=== PATIENT | female | born 1960 | race Caucasian/White ===

== ENCOUNTER 2021-02-23 16:04 | Outpatient (REF) | payer MEDICAID, SELFPAY ==
[2021-02-23 22:05] LABS: TSH (W/Ref FT4) < 0.01 uIU/mL (0.36-3.74)
[2021-02-23 22:22] LABS: FREE T4 1.35 ng/dL (0.76-1.46)
== END 2021-02-23 16:05 | disposition home or self-care (01) ==
LOC: NCHCN 16:04
PROVIDERS: Visit Provider Nurse Practitioner Family
DX: E03.9 Hypothyroidism, unspecified (principal)
CPT/HCPCS: 84439; 84443

== ENCOUNTER 2021-11-09 21:21 | Outpatient (REF) | payer MEDICAID, SELFPAY ==
[2021-11-09 22:01] LABS: Bilirubin Negative (Negative); Blood Trace-intact (Negative); Clarity Turbid (Clear); Glucose Negative (Negative); Ketones Negative (Negative); Leukocyte Esterase Negative (Negative); Nitrite Negative (Negative); Specific Gravity >= 1.030 (1.005-1.025); Urobilinogen 0.2 EU/dL (Up TO 0.2)
[2021-11-09 22:12] LABS: C & S Indicated? No; Crystals Many Amorphous HPF (Negative)
[2021-11-09 23:17] LABS: TSH (W/Ref FT4) < 0.01 uIU/mL (0.36-3.74)
[2021-11-09 23:33] LABS: FREE T4 2.04 ng/dL (0.76-1.46)
[2021-11-10 16:07] LABS: T3,Free 9.5 pg/mL (2.8-5.3)
== END 2021-11-09 21:22 | disposition home or self-care (01) ==
LOC: LBN 21:21
PROVIDERS: Visit Provider Family Medicine
DX: E05.90 Thyrotoxicosis, unspecified without thyrotoxic crisis or storm (principal); R10.9 Unspecified abdominal pain
CPT/HCPCS: 81003; 81015; 84439; 84443; 84481

== ENCOUNTER 2022-08-05 17:03 | Outpatient (REF) | payer MEDICAID, SELFPAY ==
[2022-08-05 16:40] LABS: ALT 21 U/L (14-59); AST 17 U/L (15-37); Albumin 4.1 g/dL (3.4-5.0); Alkaline Phosphatase 142 U/L (46-116); BUN 16 mg/dL (7-18); Bilirubin, Total 0.4 mg/dL (0.2-1.0); CREATININE 0.6 mg/dL (0.55-1.02); Calcium 9.7 mg/dL (8.5-10.1); Chloride 101 mmol/L (98-107); Estimated GFR 102.06 (mL/min/1.73m2); FREE T4 2.03 ng/dL (0.76-1.46); Glucose 100 mg/dL (74-106); Potassium 4.7 mmol/L (3.5-5.1); Sodium 137 mmol/L (136-145); Total Protein 7.8 g/dL (6.4-8.2)
[2022-08-05 16:46] LABS: TSH < 0.01 uIU/mL (0.36-3.74)
[2022-08-05 16:58] LABS: Calculated LDL 104 mg/dL (<100); Cholesterol 193 mg/dL (<200); HDL Cholesterol 63 mg/dL (40-60); Triglyceride 131 mg/dL (<150)
[2022-08-05 22:48] LABS: T3, Total 305 ng/dL (97-169)
== END 2022-08-05 17:04 | disposition home or self-care (01) ==
LOC: NCHCN 17:03
PROVIDERS: Visit Provider Nurse Practitioner Family
DX: E05.90 Thyrotoxicosis, unspecified without thyrotoxic crisis or storm (principal); R00.0 Tachycardia, unspecified; F41.8 Other specified anxiety disorders; Z13.220 Encounter for screening for lipoid disorders
CPT/HCPCS: 80053; 80061; 84439; 84443; 84480

== ENCOUNTER 2022-10-04 15:13 | Outpatient (REF) | payer MEDICAID, SELFPAY ==
[2022-10-04 19:26] LABS: FREE T4 1.17 ng/dL (0.76-1.46); TSH < 0.01 uIU/mL (0.36-3.74)
[2022-10-05 17:41] LABS: T3, Total 124 ng/dL (97-169)
== END 2022-10-04 15:14 | disposition home or self-care (01) ==
LOC: NCHCN 15:13
PROVIDERS: Visit Provider Nurse Practitioner Family
DX: E05.90 Thyrotoxicosis, unspecified without thyrotoxic crisis or storm (principal)
CPT/HCPCS: 84439; 84443; 84480

== ENCOUNTER → 2022-10-20 02:57 | Outpatient (CLI) | payer MEDICAID, SELFPAY ==
--- NOTE | 2022-10-20 07:47 | DI.MAMMO_ITS ---
Exam(s) MAMMO SCREENING EXAM: MAMMO SCREENING CLINICAL HISTORY: SCREENING, Z12.39 TECHNIQUE: Mammograms were interpreted according to the usual protocol including computer analysis w [employer] CAD system, tomosynthesis and C-view imaging. COMPARISON: FINDINGS: The breasts are of moderate density with fairly symmetrical distribution tissue. No dominant mass or clumped microcalcification is identified either breast. There is masslike area of focal asymmetric density projected in the central superior portion of the left breast on CC and MLO views. No prior m ammogram available for comparison. IMPRESSION: Question left breast mass as described above, additional mammographic views of the left breast reques elyse to include CC and MLO spot compression views. Breast ultrasound also recommended. BI-RADS Category 0 - Assessment Incomplete: Need additional imaging evaluation Breast Density - Category B - Scattered areas of fibroglandular density
== END ==
PROVIDERS: Visit Provider Nurse Practitioner Family
DX: Z12.31 Encounter for screening mammogram for malignant neoplasm of breast (principal); R92.8 Other abnormal and inconclusive findings on diagnostic imaging of breast
CPT/HCPCS: 77063; 77067

== ENCOUNTER 2022-11-19 00:17 | Outpatient (CLI) | payer MEDICAID, SELFPAY ==
--- NOTE | 2022-11-19 09:30 | DI.MAMMO_ITS ---
Exam(s) MG MAMMO SCREEN CALL BACK UNI US BREAST LT LIMITED EXAM: MG MAMMO SCREEN CALL BACK UNI CLINICAL HISTORY: MASS-LIKE FOCAL ASYMMETRIC DENSITY CENTERAL SUPERIOR LT BREAST. TECHNIQUE: Craniocaudal and mediolateral oblique spot compression digital Mammography views of the l eft breast followed by Tomosynthesis and left breast ultrasound. COMPARISON: MG MG MAMMO SCREENING from 10/20/2022 US US BREAST LT LIMITED from 11/19/2022 FINDINGS: Mammography/Tomosynthesis: Masses/Architectural Distortion: Persistent mildly lobulated ovoid nodule superior left breast which may represent intramammary lymph node. Microcalcifictions: No suspicious pleomorphic-type are seen. Skin Thickening/Nipple Retraction: None. Left breast US: Echotexture: Normal appearance of the glandular tissue. Shadowing: No suspicious foci. Cyst: None. Solid lesions: 4 x 2 x 3 millimeter hypoechoic focus upper inner quadrant, 10 o'clock position 3 cm f rom the nipple has the appearance of an intramammary lymph node. This may not correspond to the gayle mographic abnormality which is larger. Ductal dilation: None. IMPRESSION: 1. No evidence of malignancy is noted. 2. Six-month follow-up left mammogram and ultrasound is recommended. 3. The findings were discussed with the patient on the date of the examination. BI-RADS Category 3 - Probably Benign Finding: Recommend follow-up mammography in 3 months Breast Density - Category B - Scattered areas of fibroglandular density A mammogram that demonstrates density of C or D indicates the patient's breast tissue is dense. Dense breast tissue is very common and is not abnormal, but dense breast tissue can make it harder to find cancer on a mammogram. Also, dense breast tissue may increase their breast cancer risk. This informa tion about the result of the mammogram report was provided to the patient to raise their awareness. U se this report when you speak with the patient about their risks for breast cancer, which includes th eir family history. At that time, you may recommend for more screening tests (Ultrasound or MRI) as t hey might be useful based on their risk. A negative radiographic report should not delay biopsy if a dominant or clinically suspicious mass is present. Up to ten percent of cancers are not identified on mammography. A negative report may reinforce clinical impression. Adenosis and dense breasts may obscure an underlying neoplasm. False positive reports average 6 to 10%. Patient will receive a letter notifying them of these results.
== END 2022-11-19 00:37 ==
LOC: DI 00:17
PROVIDERS: Visit Provider Nurse Practitioner Family
DX: Z12.31 Encounter for screening mammogram for malignant neoplasm of breast (principal); R92.8 Other abnormal and inconclusive findings on diagnostic imaging of breast
CPT/HCPCS: 76642; 77063; 77067

== ENCOUNTER 2022-11-23 16:39 | Outpatient (REF) | payer MEDICAID, SELFPAY ==
[2022-11-23 18:15] LABS: FREE T4 1.01 ng/dL (0.76-1.46)
[2022-11-23 18:17] LABS: TSH < 0.01 uIU/mL (0.36-3.74)
== END 2022-11-23 16:40 | disposition home or self-care (01) ==
LOC: NCHCN 16:39
PROVIDERS: Visit Provider Nurse Practitioner Family
DX: E05.90 Thyrotoxicosis, unspecified without thyrotoxic crisis or storm (principal)
CPT/HCPCS: 84439; 84443

== ENCOUNTER 2023-01-19 17:47 | Outpatient (REF) | payer MEDICAID, SELFPAY ==
[2023-01-19 15:46] LABS: FREE T4 0.73 ng/dL (0.76-1.46)
== END 2023-01-19 17:48 | disposition home or self-care (01) ==
LOC: NCHCN 17:47
PROVIDERS: Visit Provider Nurse Practitioner Family
DX: E05.90 Thyrotoxicosis, unspecified without thyrotoxic crisis or storm (principal)
CPT/HCPCS: 84439; 84443

== ENCOUNTER 2023-03-24 14:37 | Outpatient (REF) | payer MEDICAID, SELFPAY ==
[2023-03-24 16:14] LABS: Absolute Basophil Count 0.04 10^3/uL (0.0-0.2); Absolute Eosinophil Count 0.13 10^3/uL (0.0-0.7); Absolute Lymphocyte Count 2.41 10^3/uL (1.2-3.4); Absolute Monocyte Count 0.56 10^3/uL (0.1-0.8); Absolute Neutrophil Count 2.81 10^3/uL (1.2-6.7); Basophils % 0.7; Eosinophils % 2.2; HCT 43.1 % (36.0-46.0); HGB 14.7 g/dL (11.2-15.7); Lymphocytes % 40.5; MCH 32.5 pg (27.0-33.0); MCHC 34.1 % (32.0-36.0); MCV 95 fL (80-95); MPV 11.2 fL (8.0-11.0); Monocytes % 9.4; Neutrophils % 47.2; Platelet Count 203 10^3/uL (130-400); RBC 4.52 10^6/uL (3.93-5.22); RDW 11.5 % (11.7-14.6); RDW-SD 40.1 fL; WBC 5.95 10^3/uL (4.4-10.8)
[2023-03-24 16:55] LABS: Vitamin D 25 Total 18.1 ng/mL (30-100)
[2023-03-24 17:00] LABS: Vitamin B12 339 pg/mL (193-986)
[2023-03-24 17:04] LABS: TSH (W/Ref FT4) < 0.01 uIU/mL (0.36-3.74)
[2023-03-24 17:24] LABS: FREE T4 1.51 ng/dL (0.76-1.46)
[2023-03-24 23:24] LABS: T3, Total 218 ng/dL (97-169)
== END 2023-03-24 14:38 | disposition home or self-care (01) ==
LOC: NCHCN 14:37
PROVIDERS: PCP Nurse Practitioner Family; Visit Provider Nurse Practitioner Family
DX: R53.83 Other fatigue (principal); E05.90 Thyrotoxicosis, unspecified without thyrotoxic crisis or storm; E55.9 Vitamin D deficiency, unspecified; R68.89 Other general symptoms and signs
CPT/HCPCS: 82306; 82607; 84439; 84443; 84480; 85025

== ENCOUNTER 2023-07-12 17:04 | Emergency (ER) | payer MEDICAID, SELFPAY ==
[2023-07-12 17:08] VITALS: BP 125/68; PULSE 82; RESP 20; TEMP 37; O2SAT 99
--- NOTE | 2023-07-12 17:15 | DI.RAD_ITS ---
Exam(s) XR HUMERUS RT XR SHOULDER RT COMPLETE 2+V EXAM: XR SHOULDER RT COMPLETE 2+V CLINICAL HISTORY: fall pain. TECHNIQUE: 2D digital imaging was performed. Five views. COMPARISON: CR XR HUMERUS RT from 07/12/2023 FINDINGS: BONES: Comminuted fracture of the humeral head without significant angulation. The main fracture tania e extends transversely through the surgical neck of the humerus. The greater tuberosity region is fr actured as a separate fragment and mildly displaced. No additional fractures in the shoulder or more distally in the humerus. No bony destructive lesion is seen. JOINTS: No dislocation present. Mild degenerative changes of the glenohumeral joint and acromioclavi cular joint. Elbow unremarkable.. SOFT TISSUE: Normal. IMPRESSION: Comminuted humeral head fracture. DATA REPOSITORY: RADIATION DOSE DELIVERED:
--- NOTE | 2023-07-12 17:26 | ED.GENADUL_ITS ---
Discharge Plan Disposition Patient Disposition: Home Condition: Stable Discharge Details Chief Complaint: Orthopedic Clinical Impression: Fracture of head of humerus Primary Care Provider: Sabrina Harden ED Provider: Santosh Stanley Home Meds and New Rx's Prescriptions: No Action eszopiclone 2 mg tablet 2 mg PO QHS oxybutynin chloride 5 mg tablet 5 mg PO BID duloxetine 60 mg capsule,delayed release(DR/EC) 60 mg PO DAILY propranolol 20 mg tablet 20 mg PO BID duloxetine 30 mg capsule,delayed release(DR/EC) 30 mg PO DAILY cholecalciferol (vitamin D3) 1,250 mcg (50,000 unit) capsule 1,250 mcg PO QWEEK bupropion HCl 150 mg tablet extended release 24 hr 150 mg PO QAM methimazole 10 mg tablet 20 mg PO DAILY gabapentin 300 mg capsule 600 mg PO TID Rx Instructions: And 300mg at nighttime for sciatica/neuropathy Discharge Instructions Instructions: Arm Fracture in Adults (ED) Additional Instructions: Please use sling as directed. Follow-up with orthopedic surgery. Please return to the emergency department for any worsening symptom Medical Decision Making 62-year-old female presents with right shoulder pain after being pulled down by a dog, pain and decreased range of motion of right shoulder, and proximal humerus, range of motion and neurovascular examination of remaining parts of extremity intact, soft compartments, neurologically intact, superficial abrasion to right brow. Concern for proximal humerus fracture versus shoulder dislocation. Low suspicion for intracranial hemorrhage or skull fracture. No midline spinal tenderness or neurologic deficits. Will obtain screening x-ray of shoulder and humerus. Analgesia anti-inflammatory close reassess 18: 10 evidence of humeral head fracture, placed in sling, neurovascular exam of limb intact. Patient will be given urgent orthopedic referral HPI General Date/Time Provider Initiated Documentation: 07/12/23 17:05 . HPI Narrative: 62-year-old female presents after falling after being pulled down by a dog that she was walking. Fell onto her right shoulder. Pain to right shoulder and arm. Also hit the side of her face without loss of consciousness. Patient is not on any blood thinners. Related Data Home Medications Medication Instructions Recorded Confirmed duloxetine 60 mg capsule,delayed 60 mg PO DAILY 10/15/22 07/12/23 release eszopiclone 2 mg tablet 2 mg PO QHS 10/15/22 07/12/23 oxybutynin chloride 5 mg tablet 5 mg PO BID 10/15/22 07/12/23 propranolol 20 mg tablet 20 mg PO BID 10/15/22 07/12/23 bupropion HCl 150 mg 24 hr tablet, 150 mg PO QAM 03/31/23 07/12/23 extended release cholecalciferol (vitamin D3) 1,250 1,250 mcg PO QWEEK 03/31/23 07/12/23 mcg (50,000 unit) capsule duloxetine 30 mg capsule,delayed 30 mg PO DAILY 03/31/23 07/12/23 release gabapentin 300 mg capsule 600 mg PO TID 03/31/23 07/12/23 methimazole 10 mg tablet 20 mg PO DAILY 03/31/23 07/12/23 Allergies Allergy/AdvReac Type Severity Reaction Status Date / Time trazodone Allergy Severe Verified 07/12/23 17:13 paroxetine [From Paxil] Allergy Unknown Verified 07/12/23 17:13 General Stated Complaint: Orthopedic JAMES: 4 Review of Systems Narrative: Review of Systems Constitutional: negative Eyes: negative ENT: negative Cardiovascular: negative Respiratory: negative Gastrointestinal: negative : negative Musculoskeletal: Arm pain Skin: negative Neurologic: negative Psych: negative PFSH All Active Problems (Updated 07/12/23 @ 18:12 by Santosh Stanley MD) Fracture of head of humerus (Acute) Epidermal inclusion cyst (Acute) Median nerve entrapment (Acute) Insomnia (Acute) Anxiety and depression (Chronic) Hyperthyroidism (Chronic) Enlarged thyroid (Acute) Urge incontinence of urine (Acute) Glaucoma, narrow-angle (Acute) Cataracts, bilateral (Acute) Subcutaneous mass of back (Acute) Medical History IBS (irritable bowel syndrome) Mass of left breast on mammogram Nicotine dependence Rheumatoid arthritis involving both feet Sciatica, right side Tachycardia Social History Smoking/Tobacco Use Status: Never Smoking risk assessment performed?: Yes Drug use: Daily Substance use type: marijuana Exam Narrative Exam Narrative: Physical Examination General: alert, awake, cooperative, resting comfortably, no acute distress HEENT: normocephalic, superficial abrasion to right brow hemostatic, no foreign bodies; PERRL, EOM intact, conjunctiva normal; no nasal discharge; moist mucous membranes, oral and pharyngeal mucosa normal, tolerating secretions Neck: supple, trachea midline; full ROM Chest: normal to inspection Respiratory: normal respiratory effort, speaking in full sentences, clear to auscultation, no wheezing, rales or rhonchi Cardiac: regular rate, regular rhythm, S1S2 intact, no murmurs rubs or gallops GI: abdomen soft, non-tender, non-distended; no palpable mass or hepatosplenomegaly Skin: no lesions, rashes or trauma appreciated Neuro: AAOx3, normal speech, moving all extremities Extremities: Pain to proximal humerus and right shoulder, decreased range of motion at this joint, no discomfort over elbow wrist or hand, full flexion extension of fingers wrist, median radial and ulnar nerve sensory distribution intact, radial pulse intact. Psych: Appropriate mood and affect Course Vital Signs Vital signs: Vital Signs Temperature 37.0 C 07/12/23 17:08 Pulse 82 07/12/23 17:08 Respiratory Rate 20 07/12/23 17:08 Blood Pressure 125/68 07/12/23 17:08 Pulse Oximetry 99 07/12/23 17:08 Temperature 37.0 C 07/12/23 17:08 Temperature Source Oral 07/12/23 17:08 Pulse 82 07/12/23 17:08 Respiratory Rate 20 07/12/23 17:08 Respiratory Effort Normal 07/12/23 17:17 Blood Pressure 125/68 07/12/23 17:08 Blood Pressure Position Sitting 07/12/23 17:08 Pulse Oximetry 99 07/12/23 17:08 Oxygen Delivery Method Room Air 07/12/23 17:08 Oxygen Flow Rate 0 07/12/23 17:08 Pain Level 5 07/12/23 17:08
[2023-07-12] MEDS: Ketorolac 15 MG/ML VIAL IM (17:28)
[2023-07-12 18:28] VITALS: BP 148/90; PULSE 88; RESP 14; O2SAT 95
== END 2023-07-12 18:31 | disposition home or self-care (01) ==
PROVIDERS: Emergency Provider Emergency Medicine; PCP Nurse Practitioner Family
DX: S42.291A Other displaced fracture of upper end of right humerus, initial encounter for closed fracture (principal); W54.1XXA Struck by dog, initial encounter; W19.XXXA Unspecified fall, initial encounter; Y93.K1 Activity, walking an animal
CPT/HCPCS: 96372; 99284; 73030; 73060; J1885

== ENCOUNTER → 2023-07-15 01:46 | Outpatient (CLI) | payer MEDICAID, SELFPAY ==
--- NOTE | 2023-07-15 08:20 | DI.CT_ITS ---
Exam(s) CT UPPER EXTREMITY RT WO EXAM: CT UPPER EXTREMITY RT WO CLINICAL HISTORY: FX EVALUATION, FRACTURE HEAD OF HUMERUS, S42.293A TECHNIQUE: Imaging Protocol: Axial computed tomography images with coronal and sagittal reformatted images were created and reviewed. CONTRAST MATERIAL: Noncontrast COMPARISON: CR XR SHOULDER RT COMPLETE 2+V from 07/12/2023 CR XR HUMERUS RT from 07/12/2023 FINDINGS: Bones: There has been no change in the alignment of the mildly displaced proximal humeral fracture. The greater tuberosity is fractured as a separate fragment. There are few other tiny comminuted frag ments. The humeral head appears normally positioned. The glenohumeral joint is maintained. Minimal spurring at the AC joint. Bones appear severely osteoporotic. Increased density seen within the ma rrow of the humeral head is presumably hemorrhage. Underlying neoplastic lesion not entirely exclude d. No additional fractures or other bony lesions are seen. Soft Tissues: Edema in subcutaneous fat right shoulder and upper arm. Edema surrounding humeral hea d. Joint effusion. Emphysematous changes. Apical scarring. IMPRESSION: Mildly displaced fracture of the humeral head. RADIATION DOSE DELIVERED: 636.47mGy.cm Total DLP DATA REPOSITORY: All CT scans at this facility are submitted to the National Radiology Data Registry (NRDR) Dose Index Registry (DIR) with the [employer] ([employer]). RADIATION OPTIMIZATION: All CT scans at this facility use at least one of these dose optimization te chniques: automated exposure control; mA and/or kV adjustment per patient size (includes targeted exa ms where dose is matched to clinical indication); or iterative reconstruction.
== END ==
PROVIDERS: PCP Nurse Practitioner Family; Visit Provider Student in an Organized Health Care Education/Training Program
DX: S42.291A Other displaced fracture of upper end of right humerus, initial encounter for closed fracture (principal); M25.411 Effusion, right shoulder; X58.XXXA Exposure to other specified factors, initial encounter
CPT/HCPCS: 73200

== ENCOUNTER 2023-07-19 14:57 | Outpatient (CLI) | payer MEDICAID, SELFPAY ==
--- NOTE | 2023-07-19 14:58 | DI.RAD_ITS ---
Exam(s) XR SHOULDER RT COMPLETE 2+V EXAM: XR SHOULDER RT COMPLETE 2+V CLINICAL HISTORY: F/U FRACTURE. TECHNIQUE: 2D digital imaging was performed. COMPARISON: CR XR SHOULDER RT COMPLETE 2+V from 07/12/[address] UPPER EXTREMITY RT WO from 07/15/2023 FINDINGS: Two views: The osseous glenoid appears intact. Clavicle and AC joint appear intact. Subacromial space not dimi nished. IMPRESSION: Continued satisfactory [place] of the glenohumeral joint. Humeral gzjr-hfjw-vncobsw tuberosity frac ture appears unchanged DATA REPOSITORY: RADIATION DOSE DELIVERED:
== END 2023-07-19 14:58 | disposition home or self-care (01) ==
LOC: DIORS 14:57
PROVIDERS: PCP Nurse Practitioner Family; Visit Provider Student in an Organized Health Care Education/Training Program
DX: S42.291D Other displaced fracture of upper end of right humerus, subsequent encounter for fracture with routine healing (principal); X58.XXXD Exposure to other specified factors, subsequent encounter
CPT/HCPCS: 73030

== ENCOUNTER 2023-07-28 17:20 | Outpatient (REF) | payer MEDICAID, SELFPAY ==
[2023-07-28 19:31] LABS: FREE T4 0.85 ng/dL (0.76-1.46)
[2023-07-29 20:25] LABS: T3, Total 151 ng/dL (97-169)
== END 2023-07-28 17:21 | disposition home or self-care (01) ==
LOC: NCHCN 17:20
PROVIDERS: PCP Nurse Practitioner Family; Visit Provider Nurse Practitioner Family
DX: E05.90 Thyrotoxicosis, unspecified without thyrotoxic crisis or storm (principal)
CPT/HCPCS: 84439; 84443; 84480

== ENCOUNTER 2023-08-02 14:33 | Outpatient (CLI) | payer MEDICAID, SELFPAY ==
--- NOTE | 2023-08-02 13:00 | DI.RAD_ITS ---
Exam(s) XR SHOULDER RT COMPLETE 2+V EXAM: XR SHOULDER RT COMPLETE 2+V CLINICAL HISTORY: F/U R PROXIMAL HUMERUS FX. TECHNIQUE: 2D digital imaging was performed of the right shoulder. Two images were obtained. Grash ey and Y views were obtained. COMPARISON: CR XR SHOULDER RT COMPLETE 2+V from 07/19/2023 FINDINGS: BONES: There is no change in alignment of the comminuted fracture of the proximal right humerus. No new fracture is seen. No bony destructive lesion is seen. JOINTS: No dislocation present. The glenohumeral joint is well maintained. Degenerative changes are seen at the acromioclavicular joint. SOFT TISSUE: Normal. IMPRESSION: Stable proximal right humeral fracture. DATA REPOSITORY: RADIATION DOSE DELIVERED:
== END 2023-08-02 14:34 | disposition home or self-care (01) ==
LOC: DIORS 14:33
PROVIDERS: PCP Nurse Practitioner Family; Visit Provider Physician Assistant
DX: S42.291D Other displaced fracture of upper end of right humerus, subsequent encounter for fracture with routine healing (principal); X58.XXXD Exposure to other specified factors, subsequent encounter
CPT/HCPCS: 73030

== ENCOUNTER → 2023-08-09 01:19 | Outpatient (CLI) | payer MEDICAID, SELFPAY ==
--- NOTE | 2023-08-09 14:02 | DI.US_ITS ---
Exam(s) US THYROID EXAM: US THYROID CLINICAL HISTORY: ENLARGED THYROID, E04.9,HYPERTHYROID, E05.90. TECHNIQUE: Ultrasound thyroid performed using standard protocol. COMPARISON: No exams were available for comparison FINDINGS: ISTHMUS: 4 mm RIGHT LOBE: Size: 5.8 x 2 x 2.8 cm Echogenicity: Normal. Vascularity: Normal. Nodules: There is a 3.7 x 3.5 x 1.6 cm solid isoechoic nodule in the inferior right lobe of the thyro id gland. It contains both macrocalcifications and punctate calcifications. This is consistent with a TI rads level 5 nodule. Due to its size, FNA is recommended. There is a 1.5 x 1 x 1.4 cm mixed i soechoic nodule in the superior aspect of the right lobe. It has ill-defined borders and no echogeni c foci. It is consistent with a TI rads level 2 nodule. No follow-up is recommended. LEFT LOBE: Size: 3.6 x 1.4 x 1 cm Echogenicity: Normal. Vascularity: Normal. Nodules: No suspicious nodules are seen warranting follow-up or FNA. OTHER FINDINGS: None. IMPRESSION: TI rads level 5 nodule in the right lobe. Due to its size, FNA is recommended. DATA REPOSITORY:
== END ==
PROVIDERS: PCP Nurse Practitioner Family; Visit Provider Nurse Practitioner Family
DX: E04.9 Nontoxic goiter, unspecified (principal); E05.90 Thyrotoxicosis, unspecified without thyrotoxic crisis or storm
CPT/HCPCS: 76536

== ENCOUNTER 2023-08-16 16:02 | Outpatient (CLI) | payer MEDICAID, SELFPAY ==
--- NOTE | 2023-08-16 14:00 | DI.RAD_ITS ---
Exam(s) XR SHOULDER RT COMPLETE 2+V EXAM: XR SHOULDER RT COMPLETE 2+V INDICATION: proximal fx f/u. COMPARISON: CR XR SHOULDER RT COMPLETE 2+V from 08/02/2023 TECHNIQUE: 2D digital imaging was performed. Two views. FINDINGS: There has been no change in the alignment of the humeral head fracture. There has been some increase d healing when compared with the prior exam. No new abnormalities. DATA REPOSITORY: RADIATION DOSE DELIVERED:
== END 2023-08-16 16:03 | disposition home or self-care (01) ==
LOC: DIORS 16:02
PROVIDERS: PCP Nurse Practitioner Family; Visit Provider Student in an Organized Health Care Education/Training Program
DX: S42.291D Other displaced fracture of upper end of right humerus, subsequent encounter for fracture with routine healing (principal); X58.XXXD Exposure to other specified factors, subsequent encounter
CPT/HCPCS: 73030

== ENCOUNTER 2023-09-30 06:10 | Day surgery (SDC) | payer MEDICAID, SELFPAY ==
--- NOTE | 2023-09-29 12:22 | W.COLOREPORT ---
Date of service: 09/30/23 Time of Service: 08:14 Colonoscopy Report Date of procedure: 09/30/23 Pre-op diagnosis general: Mother had colon cancer greater than age 60 Post-op diagnosis procedure note: other (polyps) Surgeon: Betty Higginbotham Anesthesia Type: General:No Airway Estimated blood loss (mL): 2 Pathology: other Complications: None Disposition: same day Prep: Miralax/Dulcolax Retraction Time: 13 Procedure Description: After informed consent was obtained the patient was taken to the procedure room and placed in a left decubitous position. Monitors were applied and a time out was done. The patients name, date of , procedure, allergies to medications and metal in their body was reviewed. The patient was then sedated. Once sedated and comfortable a rectal exam was done. External exam was normal. Internal exam revealed a normal sphincter tone and no palpable masses. The scope was then introduced and retrofelexed. No internal hemorrhoids were identified. The scope was then advanced to the cecum without difficulty. The TI and appendiceal orifice were identified. The prep was BBPS 3 in all segments for total of 9. The scope was then slowly retracted over 13 minutes back into the rectum. She had a flat 0.5 cm polyp at 20 cm that is removed with a cold biting forcep. She had x2 polyps flat 0.5 cm polyps in the rectum that are removed with cold biting forcep. All specimen is retrieved and no bleeding is noted. The mucosa is pink and healthy with a normal vascular pattern. There are no AVMs or diverticula visualized today. Patient was noted to have significant restless legs throughout the procedure. She also had a lot of coughing and airway issues because of her smoking. The scope was removed and the patient was woken up and taken back to Same day surgery in stable condition. The patient tolerated the procedure well and there were no immediate complications. Follow up: The patient should follow up in 5-7 years unless they develop changes in bowel habits or other new gastrointestinal complaints.
--- NOTE | 2023-09-29 12:23 | PDOC.DSDIS_ITS ---
Date of service: 09/30/23 Time of Service: 08:18 Discharge Plan Disposition Patient Disposition: Home Condition: Good Discharge Details Reason For Visit: Colon cancer screening Attending Provider: Betty Higginbotham Primary Care Provider: Sabrina Harden Home Meds and New Rx's Prescriptions: Continued ibuprofen 200 mg capsule 800 mg PO Q6H PRN eszopiclone 2 mg tablet 2 mg PO QHS oxybutynin chloride 5 mg tablet 5 mg PO BID duloxetine 60 mg capsule,delayed release(DR/EC) 60 mg PO DAILY duloxetine 30 mg capsule,delayed release(DR/EC) 30 mg PO DAILY cholecalciferol (vitamin D3) 1,250 mcg (50,000 unit) capsule 1,250 mcg PO QWEEK bupropion HCl 150 mg tablet extended release 24 hr 150 mg PO QAM methimazole 10 mg tablet 20 mg PO DAILY gabapentin 300 mg capsule 600 mg PO TID Rx Instructions: And 300mg at nighttime for sciatica/neuropathy propranolol 20 mg tablet 20 mg PO TID Discontinued polyethylene glycol 3350 17 gram/dose powder 238 g PO ONCE Qty: 238 0RF Rx Instructions: take per colonoscopy instructions bisacodyl [Dulcolax (bisacodyl)] 5 mg tablet,delayed release (DR/EC) 5 mg PO ONCE Qty: 4 0RF Rx Instructions: take per colonoscopy instructions Discharge Instructions Additional Instructions: DSU Colonoscopy Post- Op Instructions Instructions for Everyone who is given Anesthesia: For your safety, please do the following for the next twenty-four (24) hours: *Do Not operate a motor vehicle (car, truck, motorcycle, etc.) *Do Not drink alcoholic beverages or use any recreational drugs for the first 24 hours or while taking pain medications. The medications in your body may have a reaction that can be dangerous. *Do Not make any important decisions or sign any important papers. Findings: colon polyps Follow up: My office will send you a letter in 2 to 3 weeks time with the results of the pathology and when we want you to repeat the colonoscopy 1. No lifting over 20 pounds or strenuous activity for the first 24 hours after your procedure. After 24 hours there are no restrictions on your activity but you may feel fatigued for a few days. 2. After you arrive home you may have a light meal and return to your normal diet as you can tolerate it without feeling sick to your stomach. 3. You may have a bloated, gaseous feeling in your belly (abdomen) after a colonoscopy. Passing gas and belching will help. Walking or lying down on your left side with your knees flexed may relieve the discomfort. Call the office at [phone] (Office) or [phone] (Hospital) right away if you notice any of the following: a.Vomiting of blood or ?coffee ground stools?. b.Rectal bleeding 1Tbsp, blood clots or continuous bleeding. c.Severe belly (abdominal) pain. d.A hard distended belly (abdomen) and an inability to pass gas. 4. Please don?t expect to have a normal BM (bowel movement) for 2-3 days after your procedure. 5. If there are questions regarding the findings of your procedure, please contact your doctor 6. If you are unable to contact your doctor with a problem, contact the hospital at [phone]. 7. Continue all your regular medications unless directed otherwise. I understand the above instructions and have no questions. Signature of Patient or Adult Escort Name of Responsible Adult Escort Signature of Nurse Date/Time Activity:: See above Diet:: See above Discharge Orders Discharge Orders: Discharge Order (Routine); Ordered 09/30/23 Ordered By: Betty Higginbotham DS: Diagnosis Discharge Diagnosis (1) Family history of colon cancer in mother: Status: Acute Asessment and Plan: The patient is seen and examined after their colonoscopy.? The patient has been able to pass gas.? They are not having abdominal pain.? They have been able to tolerate liquids and a snack.? They do not have any nausea or vomiting.? They are not having any chest pain or shortness of breath.??? They are not having any rectal bleeding. Their vital signs have been stable-see nursing notes. We discussed findings during their colonoscopy, and any biopsies that were done/polyps that were removed. The patient will be sent a letter with any biopsy results, and when to repeat the colonoscopy.-see discharge instructions. Patient was given explicit instructions to follow-up regarding colonoscopy-refer to discharge instructions.? We reviewed resumption of medications. Patient verbalized understanding and discharged in stable and satisfactory condition- See nursing notes. (2) Rheumatoid arthritis: (3) Nicotine dependence: (4) Hyperthyroidism: Status: Chronic (5) Glaucoma, narrow-angle: Status: Acute (6) History of colon polyps: Status: Acute
[2023-09-30 06:29] VITALS: BP 112/65; PULSE 79; RESP 16; TEMP 36.4; O2SAT 98
[2023-09-30] MEDS: Lactated Ringers 1,000 ML 80 ML IV (06:45)
--- NOTE | 2023-09-30 07:28 | W.ANESPRE ---
General Info Date of Service Date Performed: 09/30/23 Height: 5 ft 5 in Weight: 75.6 kg Body Mass Index (BMI): 27.7 Surgical Procedure: Operation Date: 09/30/23 07:35 Proposed Procedure Side Surgeon gustabo Higginbotham, DO Meds Allergies and Home Medications Allergies Allergy/AdvReac Type Severity Reaction Status Date / Time paroxetine [From Paxil] Allergy Severe Anaphylaxis Verified 09/30/23 06:23 trazodone Allergy Severe Anaphylaxis Verified 09/30/23 06:23 Home Medication Medication Instructions Recorded duloxetine 60 mg capsule,delayed 60 mg PO DAILY 10/15/22 release eszopiclone 2 mg tablet 2 mg PO QHS 10/15/22 oxybutynin chloride 5 mg tablet 5 mg PO BID 10/15/22 bupropion HCl 150 mg 24 hr tablet, 150 mg PO QAM 03/31/23 extended release cholecalciferol (vitamin D3) 1,250 1,250 mcg PO QWEEK 03/31/23 mcg (50,000 unit) capsule duloxetine 30 mg capsule,delayed 30 mg PO DAILY 03/31/23 release gabapentin 300 mg capsule 600 mg PO TID 03/31/23 methimazole 10 mg tablet 20 mg PO DAILY 03/31/23 ibuprofen 200 mg capsule 800 mg PO Q6H PRN 07/19/23 propranolol 20 mg tablet 20 mg PO TID 08/02/23 Current Visit Medications: Current Medications Generic Name Dose Route Start Last Admin Trade Name Freq PRN Reason Stop Dose Admin Hyoscyamine Sulfate 0.125 mg 09/30/23 11:44 Hyoscyamine 0.125 Mg Sl/Oral/Chew SL 10/30/23 11:43 DIRECTED PRN Ringer's Solution 1,000 mls @ 80 mls/hr 09/30/23 06:00 09/30/23 06:45 IV 10/29/23 23:59 80 mls/hr INFUSION RAMANA Administration IV Miscellaneous Supplies 1 each 09/30/23 06:00 Iv Access IV 10/29/23 23:59 DIRECTED RAMANA Ondansetron HCl 4 mg 09/30/23 11:44 Ondansetron 4 Mg/2 Ml Vial IVP 10/30/23 11:43 Q4H PRN PRN Nausea / Vomiting Sodium Chloride 0 ml 09/30/23 06:00 Normal Saline Flush 10 Ml Syr IV 10/29/23 23:59 PRN PRN Sodium Chloride 0 ml 09/30/23 06:00 Normal Saline 10 Ml Vial IJ 10/29/23 23:59 DIRECTED PRN Sterile Water 0 ml 09/30/23 06:00 Water,Injection,Sterile 10 Ml Vial IJ 10/29/23 23:59 DIRECTED PRN PFSH Active Problems Active Problems: Problem Status Onset Code Family history of colon cancer in mother Z80.0 Closed fracture of right proximal humerus S42.201A Epidermal inclusion cyst L72.0 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 Insomnia G47.00 Anxiety and depression F41.9, F32.A Hyperthyroidism E05.90 Enlarged thyroid E04.9 Urge incontinence of urine N39.41 Glaucoma, narrow-angle H40.20X0 Cataracts, bilateral H26.9 Subcutaneous mass of back R22.2 Medical History Medical History (Updated 09/30/23 @ 06:23 by Stefani Llanos RN) Ovarian cyst Rheumatoid arthritis Sciatica Urinary incontinence Subcutaneous mass of neck Other specified glaucoma Fatigue Abnormal TSH Pain in right upper arm Thyroid nodule Mass of left breast on mammogram IBS (irritable bowel syndrome) Rheumatoid arthritis involving both feet Tachycardia Sciatica, right side Nicotine dependence Surgical History Surgical History (Updated 09/30/23 @ 06:23 by Stefani Llanos RN) Hx of tubal ligation History of hysterectomy History of appendectomy Tobacco Smoking/Tobacco Use Status: Current every day Tobacco Type: cigarettes Smoking cigarettes per day: 5 Alcohol Alcohol Intake: never Substance Use Substance use: Socially Substance use type: marijuana Vital Signs and Lab Results Vital Signs Most Recent Vital Signs in EMR: Most Recent Vital Signs Temp Pulse Resp BP Pulse Ox 36.4 C L 79 16 112/65 98 09/30/23 06:29 09/30/23 06:29 09/30/23 06:29 09/30/23 06:29 09/30/23 06:29 Lab Results Blood Type / Crossmatch: No Data to Display Complete Blood Count: No Data to Display Complete Metabolic Panel: No Data to Display Liver Function Panel: No Data to Display Coagulation Panel: No Data to Display Cardiac Panel: No Data to Display Arterial Blood Gas: No Data to Display Venous Blood Gas: No Data to Display Pancreas Panel: No Data to Display Thyroid Panel: No Data to Display Infectious Disease: No Data to Display Blood Cultures: No Data to Display Toxicology Panel: No Data to Display Anesthesia Assessment and Plan Anesthesia History Personal History: No History of Anesthesia Complications Family History: No Family History of Anesthesia Complications Exercise Tolerance Exercise Tolerance: Metabolic Equivalents>4 Pertinent Negatives Pertinent Negatives: No Symptoms of GERD Cardiac & Pulmonary Exam Cardiac Exam: Normal S1/S2 Heart Sounds Pulmonary Exam: Clear Bilateral Breath Sounds Implantable Cardiac Device Does patient have a Pacemaker or an ICD?: No Airway Exam Known Difficult Airway: No Mallampati Class: 2 Mouth Opening: Normal (> 3cm) Thyromental Distance: Greater than 3 cm Neck Range of Motion: Full ROM Neck Circumference: Normal Teeth Condition: Removable Dentures/Plates Lower ASA Classification ASA Score: ASA 2 Emergency Case?: No NPO Status NPO Status: NPO Clears >2 hours, Solids >8 hours Anesthesia Plan Resuscitation Status: Full Code Anesthesia Technique: General Anesthesia Airway Planned: Natural Airway Monitors Used: Standard Monitors
[2023-09-30 07:29] VITALS: BMI 27.7
--- NOTE | 2023-09-30 07:45 | BOWEL_PTH ---
PATIENT: Diane Bourgeois LOC: [facility] U#:[id number] AGE/SX: 62/F ROOM: RE09/30/[address]: Betty Higginbotham : 1960 BED: DIS: 09/30/2023 SPEC #: [id number] RECD: 09/30/23 10:50 STATUS: LULU REQ #: [id number] KATE: 09/30/23 07:[address]: Betty Higginbotham DEPT: Surgical Specimen RECD BY: Bettina Alicia ENTERED: 09/30/23 10:51 SP TYPE: Bowel OTHR DR: POLINA MENDEZ Tissues: 1 - BIOPSY BOWEL 2 - BIOPSY BOWEL Procedures: GROSS AND MICRO LEVEL 4 Comments: [id number]
[2023-09-30 08:10] VITALS: BP 122/50; PULSE 84; RESP 20; TEMP 36.3; O2SAT 89
--- NOTE | 2023-09-30 08:17 | W.ANESPOSTOP ---
Postoperative Evaluation Date, Time and Location Date Performed: 09/30/23 Time Performed: 08:17 Patient Location: Day Surgery Unit Vital Signs Most Recent Imported Vital Signs: Most Recent Vital Signs Temp Pulse Resp BP Pulse Ox 36.4 C L 79 16 112/65 98 09/30/23 06:29 09/30/23 06:29 09/30/23 06:29 09/30/23 06:29 09/30/23 06:29 Pain Score Most Recent Pain Score: Most Recent Pain Score Pain Level 0 09/30/23 06:29 Assessment Mental Status: Awake (Alert & Oriented to Patient Baseline) Airway and Respiratory Function: Patent airway with normal (patient baseline) respiratory exam Cardiovascular Function: Hemodynamically Stable Hydration Status: Adequately Hydrated Nausea & Vomiting: No Nausea or Vomiting Pain: Pt. Denies Any Pain Peripheral Nerve Block: Patient did not receive a nerve block
[2023-09-30 08:20] VITALS: PULSE 80; RESP 20; O2SAT 96
[2023-09-30 08:40] VITALS: BP 106/59; PULSE 77; RESP 20; TEMP 36.5; O2SAT 95
== END 2023-09-30 09:05 | disposition home or self-care (01) ==
LOC: SUR 06:10
PROVIDERS: PCP Nurse Practitioner Family; Visit Provider Surgery
PROC: 0DJD8ZZ Inspection of Lower Intestinal Tract, Via Natural or Artificial Opening Endoscopic (ICD-10-PCS; CPT 45378; principal; 2023-09-30 07:30)
DX: Z12.11 Encounter for screening for malignant neoplasm of colon (principal); Z80.0 Family history of malignant neoplasm of digestive organs; K63.5 Polyp of colon; F17.200 Nicotine dependence, unspecified, uncomplicated
CPT/HCPCS: 45380; 88305

== ENCOUNTER 2023-10-28 15:41 | Outpatient (REF) | payer MEDICAID, SELFPAY ==
[2023-10-28 19:04] LABS: Abs Immature Grans 0.01 10^3/uL (0.0-0.06); Absolute Basophil Count 0.04 10^3/uL (0.0-0.2); Absolute Eosinophil Count 0.09 10^3/uL (0.0-0.7); Absolute Lymphocyte Count 2.63 10^3/uL (1.2-3.4); Absolute Neutrophil Count 2.59 10^3/uL (1.2-6.7); Basophils % 0.7; Eosinophils % 1.5; HGB 14.5 g/dL (11.2-15.7); Immature Grans % 0.2; Lymphocytes % 44.9; MCH 31.7 pg (27.0-33.0); MCV 96 fL (80-95); Monocytes % 8.5; Neutrophils % 44.2; Platelet Count 211 10^3/uL (130-400); RBC 4.58 10^6/uL (3.93-5.22); RDW-SD 42.2 fL; WBC 5.86 10^3/uL (4.4-10.8)
[2023-10-28 19:28] LABS: ALT 16 U/L (14-59); AST 12 U/L (15-37); Albumin 3.8 g/dL (3.4-5.0); Alkaline Phosphatase 111 U/L (46-116); Anion Gap 8.4 mmol/L (3-11); BUN 10 mg/dL (7-18); Bilirubin, Total 0.2 mg/dL (0.2-1.0); CO2 28.6 mmol/L (21.0-32.0); CREATININE 0.8 mg/dL (0.55-1.02); Calcium 9.1 mg/dL (8.5-10.1); Chloride 103 mmol/L (98-107); Estimated GFR 83.26 (mL/min/1.73m2); FREE T4 0.88 ng/dL (0.76-1.46); Glucose 133 mg/dL (74-106); Potassium 3.9 mmol/L (3.5-5.1); Sodium 140 mmol/L (136-145); TSH 3.35 uIU/mL (0.36-3.74); Total Protein 6.9 g/dL (6.4-8.2)
[2023-10-29 22:01] LABS: T3, Total 162 ng/dL (97-169)
== END 2023-10-28 15:42 | disposition home or self-care (01) ==
LOC: NCHCN 15:41
PROVIDERS: PCP Nurse Practitioner Family; Visit Provider Nurse Practitioner Family
DX: E05.90 Thyrotoxicosis, unspecified without thyrotoxic crisis or storm (principal); R53.83 Other fatigue; N39.41 Urge incontinence
CPT/HCPCS: 80053; 84439; 84443; 84480; 85025

== ENCOUNTER 2023-12-29 14:41 | Outpatient (REF) | payer MEDICAID, SELFPAY ==
[2023-12-22 21:57] LABS: Abs Immature Grans 0.01 10^3/uL (0.0-0.06); Absolute Basophil Count 0.04 10^3/uL (0.0-0.2); Absolute Eosinophil Count 0.13 10^3/uL (0.0-0.7); Absolute Lymphocyte Count 2.83 10^3/uL (1.2-3.4); Absolute Monocyte Count 0.45 10^3/uL (0.1-0.8); Absolute Neutrophil Count 3.18 10^3/uL (1.2-6.7); Basophils % 0.6; HCT 42.7 % (36.0-46.0); HGB 14.8 g/dL (11.2-15.7); Immature Grans % 0.2; Lymphocytes % 42.6; MCH 32.8 pg (27.0-33.0); MCHC 34.7 % (32.0-36.0); MCV 95 fL (80-95); MPV 10.7 fL (8.0-11.0); Monocytes % 6.8; Neutrophils % 47.8; Platelet Count 236 10^3/uL (130-400); RBC 4.51 10^6/uL (3.93-5.22); RDW 12.7 % (11.7-14.6); RDW-SD 44.3 fL; WBC 6.64 10^3/uL (4.4-10.8)
[2023-12-22 22:16] LABS: Anion Gap 10.2 mmol/L (3-11); BUN 17 mg/dL (7-18); CO2 25.8 mmol/L (21.0-32.0); CREATININE 0.8 mg/dL (0.55-1.02); Calcium 8.9 mg/dL (8.5-10.1); Chloride 104 mmol/L (98-107); Estimated GFR 82.74 (mL/min/1.73m2); FREE T4 0.61 ng/dL (0.76-1.46); Glucose 95 mg/dL (74-106); Potassium 4.7 mmol/L (3.5-5.1); Sodium 140 mmol/L (136-145); TSH 9.71 uIU/mL (0.36-3.74)
[2023-12-23 18:05] LABS: T3, Total 126 ng/dL (97-169)
== END 2023-12-29 14:42 | disposition home or self-care (01) ==
LOC: LBN 14:41
PROVIDERS: PCP Nurse Practitioner Family; Visit Provider Physician Assistant Medical
DX: R00.2 Palpitations (principal)
CPT/HCPCS: 80048; 84439; 84443; 84480; 85025

== ENCOUNTER 2024-01-10 15:25 | Outpatient (REF) | payer MEDICAID, SELFPAY ==
[2024-01-10 19:19] LABS: FREE T4 0.51 ng/dL (0.76-1.46); TSH 20.21 uIU/Ml (0.36-3.74)
== END 2024-01-10 15:26 | disposition home or self-care (01) ==
LOC: NCHCN 15:25
PROVIDERS: PCP Nurse Practitioner Family; Visit Provider Nurse Practitioner Family
DX: E05.90 Thyrotoxicosis, unspecified without thyrotoxic crisis or storm (principal)
CPT/HCPCS: 84439; 84443

== ENCOUNTER 2024-01-12 13:56 | Outpatient (CLI) | payer MEDICAID, SELFPAY | END 2024-01-12 13:57 | disposition home or self-care (01) | PROVIDERS: PCP Nurse Practitioner Family; Visit Provider Physician Assistant Medical | DX: R00.2 Palpitations (principal) ==

== ENCOUNTER → 2024-01-17 02:40 | Outpatient (CLI) | payer MEDICAID, SELFPAY ==
--- NOTE | 2024-01-17 11:26 | DI.US_ITS ---
Exam(s) US NEEDLE LOCAL OTHER WO RAD EXAM: right thyroid nodule, TR5,ULTRASOUND GUIDED BX COMPARISON: No exams were available for comparison TECHNIQUE: Ultrasound performed using standard protocol. FINDINGS: Sonography was provided for Dr. Palmer during the performance of a right thyroid nodule biopsy. Ple ase refer to the procedure report for complete details. DATA REPOSITORY:
--- NOTE | 2024-01-17 12:15 | PAPNONF_PTH ---
PATIENT: Diane Bourgeois LOC: [facility] U#:[id number] AGE/SX: 65/F ROOM: RE01/17/[address]: Jarad Palmer MD : 1960 BED: DIS: SPEC #: [id number] RECD: 01/17/24 13:05 STATUS: LULU REKylie #: [id number] KATE: 01/17/24 12:[address]: Jarad Palmer DEPT: [facility] Cytology RECD BY: Bettina Alicia ENTERED: 01/17/24 13:06 SP TYPE: CHRISTINE SOSA DR: POLINA MENDEZ Tissues: 1 - BODY FLUID CYTO-FINE NEEDLE [facility] Procedures: BODY FLUID CYTO-FINE NEEDLE ASPIRATE-[facility] Comments: [id number] (PATH FNA CONSULT) (REFRIGERATED)
--- NOTE | 2024-01-17 12:39 | W.PROCNOTE ---
Date of service: 01/17/24 Time of Service: 12:40 Procedure Note Date of procedure: 01/17/24 Procedure: Ultrasound-guided FNA, right thyroid nodule, pathology present Surgeon/Proceduralist/Physician: Jarad Palmer Procedure Diagnosis: Right thyroid nodule meeting criteria for biopsy Procedure Indications: The patient has a right-sided thyroid nodule meeting criteria for biopsy. Options were explained to the patient regarding further management. She elected to undergo the above procedure. Consent was filled out prior to procedure and signed. Procedure Description: The patient was positioned in supine position with her neck slightly extended. Ultrasound was used to localize the nodule on the right after she had been prepped and draped in appropriate fashion. 1% lidocaine with 1/100,000 epinephrine was injected in the skin and subcutaneous tissues overlying the nodule and then a 25-gauge needle was passed into the thyroid nodule, and moved repeatedly through the nodule to collect cells. The specimen was then handed to pathology who confirmed cellular adequacy. 2 additional passes were made for potential Afirma testing. A sterile dressing was applied after ensuring adequate hemostasis. The patient was then allowed to sit and stand and ambulate. Her vital signs remained stable. She will remove the bandage in 2 hours. She will not replace it. She will call with any signs of infection or any other concerns. She will call if she does not hear from me within 1 week with regard to pathology results. She had no further questions. She is comfortable with the plan.
== END ==
PROVIDERS: PCP Nurse Practitioner Family; Visit Provider Otolaryngology
DX: E04.9 Nontoxic goiter, unspecified (principal)
CPT/HCPCS: 10005; 76942; 88104

== ENCOUNTER → 2024-01-17 02:41 | Outpatient (CLI) | payer MEDICAID, SELFPAY ==
--- NOTE | 2024-01-17 | DI.RAD_ITS ---
Exam(s) XR LUMBAR SPINE COMPLETE EXAM: XR LUMBAR SPINE COMPLETE CLINICAL HISTORY: LOW BACK PAIN, M54.50. TECHNIQUE: 2D digital imaging was performed. Five views. COMPARISON: No exams were available for comparison FINDINGS: BONES: No fracture or destructive lesion. Vertebral body heights are maintained. Endplate osteophyte s greatest in the lower thoracic spine. Facet degenerative changes, greatest at L4-5 and L5-S1. DISKS: Intervertebral disc spaces are maintained. ALIGNMENT: Mild dextroscoliosis. SOFT TISSUE: Calcification of the aorta. IMPRESSION: Degenerative changes, greatest of the facet joints at L4-5 and L5-S1. DATA REPOSITORY: RADIATION DOSE DELIVERED:
== END ==
PROVIDERS: PCP Nurse Practitioner Family; Visit Provider Nurse Practitioner Family
DX: M51.37 Other intervertebral disc degeneration, lumbosacral region (principal)
CPT/HCPCS: 72110

== ENCOUNTER → 2024-01-18 04:26 | Outpatient (CLI) | payer MEDICAID, SELFPAY ==
--- NOTE | 2024-01-18 | DI.MAMMO_ITS ---
Exam(s) MAMMO SCREENING EXAM: MAMMO SCREENING CLINICAL HISTORY: SCREENING, Z12.39 TECHNIQUE: Mammograms were interpreted according to the usual protocol including computer analysis w [employer] CAD system, tomosynthesis and C-view imaging. COMPARISON: US US BREAST LT LIMITED from 11/19/2022 FINDINGS: The breasts are composed of scattered fibroglandular densities, Breast Density category B. No suspicious masses or suspicious microcalcifications are seen. Stable area of nodularity in the lopez perior left breast. No skin thickening or abnormal axillary lymph nodes are seen. There has been no significant change from prior exams. IMPRESSION: BI-RADS Category 2 - Negative Mammogram with benign findings. Yearly screening mammography is recom mended. Breast Density - Category B, scattered fibroglandular densities. A negative radiographic report should not delay biopsy if a dominant or clinically suspicious mass is present. Up to ten percent of cancers are not identified on mammography. A negative report may reinforce clinical impression. Adenosis and dense breasts may obscure an underlying neoplasm. False positive reports average 6 to 10%. Patient will receive a letter notifying them of these results.
== END ==
PROVIDERS: PCP Nurse Practitioner Family; Visit Provider Nurse Practitioner Family
DX: Z12.31 Encounter for screening mammogram for malignant neoplasm of breast (principal)
CPT/HCPCS: 77063; 77067

== ENCOUNTER 2024-04-04 14:40 | Outpatient (REF) | payer MEDICAID, SELFPAY ==
[2024-04-04 15:53] LABS: ESR 11 mm/hr (0-30)
[2024-04-04 16:18] LABS: C-Reactive Protein < 0.50 mg/dL (<or=0.5); FREE T4 0.95 ng/dL (0.76-1.46); TSH 0.19 uIU/Ml (0.36-3.74)
[2024-04-04 22:20] LABS: Rheumatoid Factor <8.6 IU/mL (<12.0)
[2024-04-04 22:51] LABS: T3, Total 163 ng/dL (97-169)
[2024-04-05 15:16] LABS: ANA Interpretation Positive (Negative); ANA Titer Pattern 1:320 Speckled
== END 2024-04-04 14:41 | disposition home or self-care (01) ==
LOC: NCHCN 14:40
PROVIDERS: PCP Nurse Practitioner Family; Visit Provider Nurse Practitioner Family
DX: E05.90 Thyrotoxicosis, unspecified without thyrotoxic crisis or storm (principal); Z82.61 Family history of arthritis
CPT/HCPCS: 85652; 84439; 84443; 84480; 86038; 86140; 86431

== ENCOUNTER 2024-04-05 06:46 | Outpatient (CLI) | payer MEDICAID, SELFPAY ==
--- NOTE | 2024-04-05 11:39 | W.CARDEVENT ---
Date of service: 04/05/24 Time of Service: 11:39 Cardiac Event Recorder Referring Provider:: Sabrina Harden Indications:: Palpitations Cardiac Event Note: This is a cardiac event monitor. Patient was monitored for 10 days and 2 hours. Rhythm throughout was sinus with an average heart rate of 74. Minimum was 48, maximum 122 There were rare ventricular ectopic beats. There were rare atrial premature beats There was no atrial fibrillation, no high-grade AV block, no pauses greater than 3 seconds Symptoms were reported which had no correlation with any dysrhythmia .
== END 2024-04-05 06:47 | disposition home or self-care (01) ==
LOC: CARDOPNVT 06:46
PROVIDERS: PCP Nurse Practitioner Family; Visit Provider Internal Medicine Cardiovascular Disease
DX: R00.2 Palpitations (principal)
CPT/HCPCS: 93225

== ENCOUNTER 2024-06-08 12:07 | Outpatient (REF) | payer MEDICAID, SELFPAY ==
[2024-06-08 19:12] LABS: BUN 12 mg/dL (7-18); CREATININE 0.8 mg/dL (0.55-1.02); Chloride 106 mmol/L (98-107); Estimated GFR 82.74 (mL/min/1.73m2); Glucose 96 mg/dL (74-106); Potassium 4.6 mmol/L (3.5-5.1); Sodium 142 mmol/L (136-145); TSH (W/Ref FT4) 0.08 uIU/mL (0.36-3.74)
[2024-06-08 19:32] LABS: FREE T4 0.95 ng/dL (0.76-1.46)
[2024-06-09 22:49] LABS: T3, Total 163 ng/dL (97-169)
== END 2024-06-08 12:08 | disposition home or self-care (01) ==
LOC: NCHCN 12:07
PROVIDERS: PCP Nurse Practitioner Family; Visit Provider Nurse Practitioner Family
DX: E05.90 Thyrotoxicosis, unspecified without thyrotoxic crisis or storm (principal); N39.41 Urge incontinence
CPT/HCPCS: 80048; 84439; 84443; 84480

== ENCOUNTER 2024-10-10 17:54 | Outpatient (REF) | payer MEDICAID, SELFPAY ==
[2024-10-10 15:04] LABS: Abs Immature Grans 0.01 10^3/uL (0.0-0.06); Absolute Basophil Count 0.02 10^3/uL (0.0-0.2); Absolute Lymphocyte Count 1.86 10^3/uL (1.2-3.4); Absolute Monocyte Count 0.41 10^3/uL (0.1-0.8); Absolute Neutrophil Count 2.62 10^3/uL (1.2-6.7); Basophils % 0.4 %; HCT 43.3 % (36.0-46.0); HGB 14.5 g/dL (11.2-15.7); Immature Grans % 0.2 %; Lymphocytes % 37.8 %; MCH 31.8 pg (27.0-33.0); MCHC 33.5 % (32.0-36.0); MCV 95 fL (80-95); MPV 10.8 fL (8.0-11.0); Monocytes % 8.3 %; Neutrophils % 53.3 %; Platelet Count 208 10^3/uL (130-400); RBC 4.56 10^6/uL (3.93-5.22); RDW 11.6 % (11.7-14.6); RDW-SD 40.9 fL; WBC 4.92 10^3/uL (4.4-10.8)
[2024-10-10 15:45] LABS: ALT 17 U/L (14-59); AST 10 U/L (15-37); Albumin 3.8 g/dL (3.4-5.0); Alkaline Phosphatase 115 U/L (46-116); Anion Gap 8.3 mmol/L (3-11); BUN 9 mg/dL (7-18); Bilirubin, Total 0.37 mg/dL (0.2-1.0); CO2 26.7 mmol/L (21.0-32.0); CREATININE 0.7 mg/dL (0.55-1.02); Calcium 9.2 mg/dL (8.5-10.1); Chloride 104 mmol/L (98-107); Estimated GFR 97.12 (mL/min/1.73m2); FREE T4 1.04 ng/dL (0.76-1.46); Ferritin 116 ng/mL (8-252); Glucose 95 mg/dL (74-106); Potassium 4.2 mmol/L (3.5-5.1); Sodium 139 mmol/L (136-145); TSH 0.01 uIU/mL (0.36-3.74)
[2024-10-10 16:19] LABS: Iron 116 ug/dL (50-170); Total Iron Binding Capacity 336 ug/dL (250-450); Transferrin Sat 35 % (15-50)
[2024-10-10 22:38] LABS: T3, Total 144 ng/dL (97-169)
[2024-10-11 08:40] LABS: Cyclic Citrullinated Peptide <2.5 U/mL (<5.0)
[2024-10-15 15:49] LABS: RNP Ab, IgG <6.0 CU (<20.0); Ro60 Ab, IgG <7.0 CU (<20.0); SS-A/Ro, IgG <2.3 CU (<20.0); SS-B (La) Ab, IgG <3.3 CU (<20.0); Sm (Smith) Ab, IgG <8.0 CU (<20.0); dsDNA Ab, IgG <22.0 IU/mL (<27.0)
== END 2024-10-10 17:55 | disposition home or self-care (01) ==
LOC: NCHCN 17:54
PROVIDERS: PCP Nurse Practitioner Family; Visit Provider Nurse Practitioner Family
DX: E05.90 Thyrotoxicosis, unspecified without thyrotoxic crisis or storm (principal); R00.2 Palpitations; Z86.39 Personal history of other endocrine, nutritional and metabolic disease
CPT/HCPCS: 80053; 86200; 82728; 83540; 83550; 84439; 84443; 84480; 85025; 86225; 86235

== ENCOUNTER 2025-01-03 01:00 | Outpatient (CLI) | payer MEDICAID, SELFPAY ==
--- NOTE | 2025-01-03 12:30 | DI.US_ITS ---
APPROVED REPORT EXAM: Comprehensive 2D, Doppler, and color-flow Echocardiogram Patient Location: Out-Patient Quality Control Assessor: Laci Marie RDCS (AE) Indications: Hyperthyroidism Other Information Study Quality: Adequate Conclusion Normal left ventricular wall thickness and chamber size. Ejection fraction is 60%. Wall motion is n ormal Normal right ventricular size and function Both atria are normal in size There are no structural valvular abnormalities Mild mitral and aortic regurgitation Wall motion Left Ventricle The left ventricle is normal size. Left ventricular systolic function is normal. The left ventricular ejection fraction is within the normal range. There is normal left ventricular wall thickness. There is normal LV segmental wall motion. There is no ventricular septal defect visualized. LVEF is 60%. Right Ventricle The right ventricle is normal size. The right ventricular systolic function is normal. Atria The left atrium size is normal. The right atrium size is normal. The interatrial septum is intact wit h no evidence for an atrial septal defect. Aortic Valve The aortic valve is normal in structure. Aortic valve is trileaflet. There is no aortic valvular sten osis. mild aortic regurgitation. Mitral Valve The mitral valve is normal in structure. No evidence of mitral valve stenosis. Mild mitral regurgitat ion. Tricuspid Valve The tricuspid valve is normal in structure. There is no tricuspid valve stenosis. There is no tricusp id valve regurgitation noted. Pulmonic Valve The pulmonary valve is normal in structure. There is no pulmonic valvular stenosis. There is no pulmo nickolas valvular regurgitation. Great Vessels The aortic root is normal in size. The ascending aorta is normal in size. Aortic arch is normal in ca liber. IVC is normal in size and collapses >50% with inspiration. Pericardium There is no pericardial effusion. 2D Dimensions IVSD d PLAX 0.69 cm F: 0.6-1.0 Ao Root d 2.81 cm F: 2.7 - 3.3 LVPW d PLAX 0.65 cm F: 0.6 - 1.0 LVID d PLAX 4.31 cm F: 3.8 - 5.2 LVDs 2.94 cm F: 2.2 - 3.5 LV EF Teichholz 60.2 % FS 31.87 % LV EDV (Teich) 83.5 mL LV ESV (Teich) 33.2 mL Stroke Vol Index (Teich) 27.93 M-Mode TAPSE 1.58 cm (M/F) >1.7 Auto EF LV EDV A4C 129.3 mL LV EDV A2C 105.8 mL LV EDV BP 119.4 mL LV ESV A4C 52.2 mL LV ESV A2C 47.4 mL LV ESV BP 49.4 mL LVEF(%) A4C 59.6 % LVEF(%) A2C 55.2 % LVEF(%) BP 58.7 % LV SV A4C 77.1 ml LV SV A2C 58.4 ml LV SV BP 70.0 ml LV CO A4C 5.6 L/min LV CO A2C 3.3 L/min LV CO BP 4.4 L/min HR A4C 72.44 BPM HR A2C 56.59 BPM LV EDV Index (BP) LA Volume LA Length A4C 5.0 cm LA Length A2C 4.7 cm LA Area A4C s 18.54 cm2 LA Area A2C s 13.45 cm2 LA Vol A4C A-L 57.90 mL LA Vol A2C A-L 32.85 mL LA Vol Biplane A-L 45.3 mL LA Vol/BSA A4C A-L LA Vol/BSA A2C A-L LA Vol/BSA BP A-L 25.2 mL/m2 LA Vol A4C MOD 53.9 mL LA Vol A2C MOD 30.8 mL LA Vol BP MOD 42.2 mL RA Volume RA Area A4C 8.4 cm2 RA ESV A4C (A-L) 15.6mL RA Vol/BSA A4C A-L RA Length A4C 3.8 cm RA ESV A4C (MOD) 15.6mL LV Diastology MV E' medial 0.077 (>0.07 m/s) MV E Vmax 0.80 (0.4-1.3 m/s) MV E/E' MED 10.42 (<14) MV A Vmax 1.05 (0.4-1.3 m/s) MV E' lateral 0.140 (>0.1 m/s) E/A Ratio 0.8 MV E/E' LAT 5.73 (<14) MV E' Average 0.108 m/s MV E/E'(average) 7.39 Aortic Valve AoV Vmax 1.29 m/s LVOT Vmax 1.07 m/s AoV Peak Grad 37.6 mmHg LVOT Peak Grad 4.6 mmHg AoV Area (Vmax) 2.42 cm2 LVOT VTI 0.215 m AoV VTI 0.291 m LVOT Mean Grad 2.6 mmHg AoV Mean Rian. 0.86 m/s LVOT SV 62.92 mL AoV Mean Grad 3.4 mmHg LVOT Diam s 1.90 cm AoV Area (VTI) 2.16 cm2 AV Regurg Peak Gr. 6.64 mmHg Velocity Ratio 0.83 AR Decel Alpine 2.2m/sec2 AR DT 1845 msec AR PHT 535 msec AR Vmax 4.14 m/s Mitral Valve MV DT 244 (160-240 msec) Pulmonary Valve PV Vmax 0.83 (0.5-1.5 m/s) RVOT Vmax 0.58 m/s PV Peak Grad 2.8 mmHg RVOT Peak Gr. 1.3 mmHg PV Mean Rian 0.57 m/s RVOT VTI 0.120 m PV Mean Grad 1.5 mmHg RVOT Mean Gr. 0.8 mmHg
== END 2025-01-03 01:20 ==
LOC: DI 01:00
PROVIDERS: PCP Nurse Practitioner Family; Visit Provider Nurse Practitioner Family
DX: E05.90 Thyrotoxicosis, unspecified without thyrotoxic crisis or storm (principal); I08.0 Rheumatic disorders of both mitral and aortic valves
CPT/HCPCS: 93306

== ENCOUNTER 2025-01-11 00:25 | Outpatient (CLI) | payer MEDICAID, SELFPAY ==
--- NOTE | 2025-01-11 06:15 | DI.US_ITS ---
Exam(s) US THYROID EXAM: US THYROID CLINICAL HISTORY: Assess for change,THYROID NODULE,E04.1. TECHNIQUE: Ultrasound thyroid performed using standard protocol. COMPARISON: US US THYROID from 08/09/2023 FINDINGS: ISTHMUS: 6 mm RIGHT LOBE: Size: 6.0 x 2.3 x 1.7 cm Echogenicity: Normal. Vascularity: Normal. Nodules: 1. Nodule upper pole right lobe measuring 1.9 x 1.2 x 1.8 cm mixed solid and cystic, isoech oic without echogenic foci, TR 2. Mild interval increase in size. 2. 3.8 x 1.7 x 3.4 centimeter nodule mid to lower pole solid, isoechoic with punctate and macrocalci fications, TR 5. 3. Nodule in the isthmus measuring 1.4 x 0.7 x 1.3 cm, directly adjacent to the nodule seen at the l ower pole. It is solid, hypoechoic and shows punctate echogenic foci, TR 7. LEFT LOBE: Size: 3.3 x 1.0 x 1.2 cm Echogenicity: Normal. Vascularity: Normal. Nodules: No suspicious nodules. OTHER FINDINGS: No adenopathy. IMPRESSION: Stable size and appearance of large nodule at the mid to lower right pole lobe. TR 5. TR 2 nodule upper pole right lobe Isthmus nodule TR 7. This was present in retrospect on the previous exam but not measured separately from the larger adjacent nodule in the lower pole of the right lobe. DATA REPOSITORY:
== END 2025-01-11 00:45 ==
LOC: DI 00:25
PROVIDERS: PCP Nurse Practitioner Family; Visit Provider Otolaryngology
DX: E04.1 Nontoxic single thyroid nodule (principal)
CPT/HCPCS: 76536

== ENCOUNTER 2025-01-11 14:43 | Outpatient (REF) | payer MEDICAID, SELFPAY ==
[2025-01-11 19:10] LABS: TSH < 0.01 uIU/mL (0.36-3.74)
[2025-01-12 22:24] LABS: T4, Free 1.9 ng/dL (0.8-2.2)
== END 2025-01-11 14:44 | disposition home or self-care (01) ==
LOC: NCHCN 14:43
PROVIDERS: PCP Nurse Practitioner Family; Visit Provider Nurse Practitioner Family
DX: E05.90 Thyrotoxicosis, unspecified without thyrotoxic crisis or storm (principal)
CPT/HCPCS: 84439; 84443

== ENCOUNTER 2025-01-21 04:31 | Outpatient (CLI) | payer MEDICAID, SELFPAY ==
[2025-01-21] MEDS: Levalbuterol HFA 15 GM INH 4 PUFF IH (13:59)
[2025-01-21] MEDS: Inhaler, Assist Device 1 EACH MC (13:59)
--- NOTE | 2025-01-22 15:35 | W.PFT ---
Date of service: 01/21/25 Time of Service: 12:53 Pulmonary Function Test Result Indications: Dyspnea on exertion Interpretation Spirometry: No airflow limitation. No bronchodilator response. Lung Volumes: Normal lung volumes Diffusion Capacity: Normal diffusion Airway Pressure: Normal airways resistance Impression Normal pulmonary function testing Clinical Correlation therefore is recommended.
== END 2025-01-21 04:32 | disposition home or self-care (01) ==
LOC: RT 04:31
PROVIDERS: PCP Nurse Practitioner Family; Visit Provider Student in an Organized Health Care Education/Training Program
DX: F17.210 Nicotine dependence, cigarettes, uncomplicated (principal); R06.09 Other forms of dyspnea
CPT/HCPCS: 94060; 94726; 94729

== ENCOUNTER 2025-03-28 15:13 | Outpatient (REF) | payer MEDICAID, SELFPAY ==
[2025-03-28 15:32] LABS: ESR 13 mm/hr (0-30)
== END 2025-03-28 15:14 | disposition home or self-care (01) ==
LOC: NCHCN 15:13
PROVIDERS: PCP Nurse Practitioner Family; Visit Provider Nurse Practitioner Family
DX: M06.9 Rheumatoid arthritis, unspecified (principal)
CPT/HCPCS: 85652

== ENCOUNTER 2025-07-08 16:22 | Outpatient (REF) | payer MEDICAID, SELFPAY ==
[2025-07-08 16:33] LABS: TSH < 0.01 uIU/mL (0.36-3.74)
== END 2025-07-08 16:23 | disposition home or self-care (01) ==
LOC: NCHCN 16:22
PROVIDERS: PCP Nurse Practitioner Family
DX: E05.90 Thyrotoxicosis, unspecified without thyrotoxic crisis or storm (principal)
CPT/HCPCS: 84439; 84443

== ENCOUNTER 2025-07-17 15:22 | Outpatient (REF) | payer MEDICAID, SELFPAY ==
[2025-07-17 16:06] LABS: HCT 40.3 % (36.0-46.0); HGB 13.1 g/dL (11.2-15.7); MCH 30.1 pg (27.0-33.0); MCHC 32.5 % (32.0-36.0); MCV 93 fL (80-95); MPV 10.9 fL (8.0-11.0); Platelet Count 179 10^3/uL (130-400); RBC 4.35 10^6/uL (3.93-5.22); RDW 12.2 % (11.7-14.6); RDW-SD 41.4 fL; WBC 4.22 10^3/uL (4.4-10.8)
[2025-07-17 17:22] LABS: Anion Gap 6.6 mmol/L (3-11); BUN 14 mg/dL (7-18); CO2 28.4 mmol/L (21.0-32.0); Calcium 9.9 mg/dL (8.5-10.1); Chloride 103 mmol/L (98-107); Estimated GFR 100.17 (mL/min/1.73m2); Glucose 118 mg/dL (74-106); NT-proBNP 35 pg/mL (<300); Potassium 4.3 mmol/L (3.5-5.1); Sodium 138 mmol/L (136-145)
== END 2025-07-17 15:23 | disposition home or self-care (01) ==
LOC: NCHCN 15:22
PROVIDERS: PCP Nurse Practitioner Family; Visit Provider Physician Assistant
DX: R60.0 Localized edema (principal)
CPT/HCPCS: 80048; 85027; 83880

== ENCOUNTER 2025-07-26 07:16 | Day surgery (SDC) | payer MEDICAID, SELFPAY ==
[2025-07-26 07:32] VITALS: BP 117/52; PULSE 79; RESP 20; TEMP 36.3; O2SAT 98
[2025-07-26] MEDS: Prednisolone 1%, Moxifloxacin 0.5%, Bromfenac 0.09% 5.6ML BTL OS ×4 (07:37→09:07)
--- NOTE | 2025-07-26 07:38 | ANES.PREOP_ITS ---
General Info Date of Service Date Performed: 07/26/25 Height: 5 ft 3.5 in Weight: 72.3 kg Body Mass Index (BMI): 27.8 Surgical Procedure: Operation Date: 07/26/25 09:40 Proposed Procedure Side Surgeon p Cataract Extraction with IOL Implant Left Santosh Montiel MD Meds Allergies and Home Medications Allergies Allergy/AdvReac Type Severity Reaction Status Date / Time paroxetine (From Paxil) Allergy Severe Anaphylaxis Verified 07/26/25 07:26 trazodone Allergy Severe Anaphylaxis Verified 07/26/25 07:26 Home Medication ?Medication ?Instructions ?Recorded duloxetine 60 mg capsule,delayed 60 mg PO DAILY release eszopiclone 2 mg tablet 2 mg PO QHS 10/15/22 oxybutynin chloride 5 mg tablet 5 mg PO BID 10/15/22 bupropion HCl 150 mg 24 hr tablet, 150 mg PO QAM 03/31 extended release cholecalciferol (vitamin D3) 1,250 1,250 mcg PO QWEEK 03/31/23 mcg (50,000 unit) capsule duloxetine 30 mg capsule,delayed 30 mg PO DAILY release gabapentin 300 mg capsule 600 mg PO TID 03/31/23 methimazole 10 mg tablet 20 mg PO DAILY 03/31/23 propranolol 20 mg tablet 20 mg PO TID 08/02/23 meloxicam 7.5 mg tablet 7.5 mg PO DAILY 07/24/25 metoprolol tartrate 50 mg tablet 50 mg PO BID 07/24/25 Current Visit Medications: Current Medications Generic Name Dose Route Start Last Admin Trade Name Dariusq PRN Reason Stop Dose Admin Acetaminophen 1,000 mg 07/26/25 06:00 Acetaminophen 500 Mg Tab PO 08/25/25 05:59 Q4H PRN PRN Balanced Salt Solution 500 ml 07/26/25 06:00 Balanced Salt Soln.-Plus 500 Ml Bag OP 08/25/25 05:59 DIRECTED [facility] Miscellaneous Medication 0 ml 07/26/25 06:00 07/26/25 07:37 Prednisolone 1%, Moxifloxacin 0.5%, Bromfenac 0.09% 5.6ml Btl OS 08/25/25 05:59 1 drp DIRECTED [facility] Administration Miscellaneous Medication 0 ml 07/26/25 06:00 Tropicam./Phenyleph. (1/2.5%) 5 Ml Btl OS 08/25/25 05:59 DIRECTED [facility] Tetracaine HCl 0 ml 07/26/25 06:00 Tetracaine 0.5% 4 Ml Btl OS 08/25/25 05:59 DIRECTED [facility] PFSH Active Problems Active Problems: Problem Status Onset Code Cortical age-related cataract, left eye Acute H25.012 Nuclear age-related cataract, left eye Acute H25.12 Multinodular thyroid Acute E04.2 History of colon polyps Acute ~09/30/23 Z86.010 Family history of colon cancer in mother Acute Z80.0 Closed fracture of right proximal humerus Acute S42.201A Epidermal inclusion cyst Acute L72.0 Median nerve entrapment Acute G56.00 Insomnia Acute G47.00 Anxiety and depression Chronic F41.9, F32.A Hyperthyroidism Chronic E05.90 Enlarged thyroid Acute E04.9 Urge incontinence of urine Acute N39.41 Glaucoma, narrow-angle Acute H40.20X0 Cataracts, bilateral Acute H26.9 Subcutaneous mass of back Acute R22.2 Medical History Medical History Lupus (systemic lupus erythematosus) Thyrotoxicosis Carpal tunnel syndrome Mass of torso Simple goiter Cataract Mass of left breast Mixed anxiety and depressive disorder Ovarian cyst Rheumatoid arthritis Sciatica Urinary incontinence Subcutaneous mass of neck Other specified glaucoma Fatigue Abnormal TSH Pain in right upper arm Thyroid nodule Mass of left breast on mammogram IBS (irritable bowel syndrome) Rheumatoid arthritis involving both feet Tachycardia Sciatica, right side Nicotine dependence Surgical History Surgical History History of colonoscopy (~09/2023) biopsies taken Hx of tubal ligation History of hysterectomy History of appendectomy Tobacco Smoking/Tobacco Use Status: Current every day Tobacco Type: cigarettes Smoking cigarettes per day: 5 Passive smoking exposure: No Alcohol Alcohol Intake: never Substance Use Substance use: Socially Substance use type: marijuana Vital Signs and Lab Results Vital Signs Most Recent Vital Signs in EMR: Most Recent Vital Signs Temp Pulse Resp BP Pulse Ox 36.3 C L 79 20 117/52 L 98 07/26/25 07:32 07/26/25 07:32 07/26/25 07:32 07/26/25 07:32 07/26/25 07:32 Lab Results Complete Blood Count: WBC, (4.4-10.8) 4.22 10^3/uL L 07/17/25, 13:30 RBC, (3.93-5.22) 4.35 10^6/uL 07/17/25, 13:30 Hgb, (11.2-15.7) 13.1 g/dL 07/17/25, 13:30 Hct, (36.0-46.0) 40.3 % 07/17/25, 13:30 Plt Count, (130-400) 179 10^3/uL 07/17/25, 13:30 Complete Metabolic Panel: Sodium, (136-145) 138 mmol/L 07/17/25, 13:30 Potassium, (3.5-5.1) 4.3 mmol/L 07/17/25, 13:30 Chloride, (98-107) 103 mmol/L 07/17/25, 13:30 Carbon Dioxide, (21.0-32.0) 28.4 mmol/L 07/17/25, 13 :30 BUN, (7-18) 14 mg/dL 07/17/25, 13:30 Creatinine, (0.55-1.02) 0.6 mg/dL 07/17/25, 13:30 Est GFR (CKD-EPI 2020), (mL/min/1.73m2) 100.17 07/17/25, 13:30 Calcium, (8.5-10.1) 9.9 mg/dL 07/17/25, 13:30 Glucose, (74-106) 118 mg/dL H 07/17/25, 13:30 Cardiac Panel: NT-Pro-B Natriuret Pep, (<300) 35 pg/mL 07/17/25 Thyroid Panel: TSH, (0.36-3.74) < 0.01 uIU/mL L 07/08/25, 10:30 Imaging and Studies Imaging and Studies Study information below may be from another EMR and interpreted by another provider. Please see original notes in EMR for more complete details. Echocardiogram Summary: Patient Name: Diane Bourgeois Unit #: [id number] Loc: DI Ordering Provider: Sabrina Harden Status: REG CLI Primary Care Provider: Sabrina Harden Date of Exam: 01/03/25 Sex: F Admission Date: 01/03/25 : 1960 Age: 64 APPROVED REPORT EXAM: Comprehensive 2D, Doppler, and color-flow Echocardiogram Patient Location: Out-Patient Sales Demonstrator: Laci Marie RDCS (AE) Indications: Hyperthyroidism Other Information Study Quality: Adequate Conclusion Normal left ventricular wall thickness and chamber size. Ejection fraction is 60%. Wall motion is normal Normal right ventricular size and function Both atria are normal in size There are no structural valvular abnormalities Mild mitral and aortic regurgitation Wall motion Left Ventricle The left ventricle is normal size. Left ventricular systolic function is normal. The left ventricular ejection fraction is within the normal range. There is normal left ventricular wall thickness. There is normal LV segmental wall motion. There is no ventricular septal defect visualized. LVEF is 60%. Right Ventricle The right ventricle is normal size. The right ventricular systolic function is normal. Atria The left atrium size is normal. The right atrium size is normal. The interatrial septum is intact with no evidence for an atrial septal defect. Aortic Valve The aortic valve is normal in structure. Aortic valve is trileaflet. There is no aortic valvular stenosis. mild aortic regurgitation. Mitral Valve The mitral valve is normal in structure. No evidence of mitral valve stenosis. Mild mitral regurgitation. Tricuspid Valve The tricuspid valve is normal in structure. There is no tricuspid valve stenosis. There is no tricuspid valve regurgitation noted. Pulmonic Valve The pulmonary valve is normal in structure. There is no pulmonic valvular stenosis. There is no pulmonic valvular regurgitation. Great Vessels The aortic root is normal in size. The ascending aorta is normal in size. Aortic arch is normal in caliber. IVC is normal in size and collapses >50% with inspiration. Pericardium There is no pericardial effusion. 2D Dimensions IVSD d PLAX 0.69 cm F: 0.6-1.0Ao Root d 2.81 cm F: 2.7 - 3.3 LVPW d PLAX 0.65 cm F: 0.6 - 1.0 LVID d PLAX 4.31 cm F: 3.8 - 5.2 LVDs 2.94 cm F: 2.2 - 3.5 LV EF Teichholz 60.2 % FS31.87 % LV EDV (Teich)83.5 mL LV ESV (Teich)33.2 mL Stroke Vol Index (Teich)27.93 M-Mode TAPSE 1.58 cm (M/F) >1.7 Auto EF LV EDV Q7L987.3 mLLV EDV C8K902.8 mLLV EDV BP119.4 mL LV ESV A4C52.2 mLLV ESV A2C47.4 mLLV ESV BP49.4 mL LVEF(%) A4C59.6 %LVEF(%) A2C55.2 %LVEF(%) BP58.7 % LV SV A4C77.1 mlLV SV A2C58.4 mlLV SV BP70.0 ml LV CO A4C5.6 L/minLV CO A2C3.3 L/minLV CO BP4.4 L/min HR A4C72.44 BPMHR A2C56.59 BPMLV EDV Index (BP) LA Volume LA Length A4C5.0 cmLA Length A2C4.7 cm LA Area A4C s 18.54 cm2LA Area A2C s 13.45 cm2 LA Vol A4C A-L57.90 mLLA Vol A2C A-L32.85 mLLA Vol Biplane A-L45.3 mL LA Vol/BSA A4C A-LLA Vol/BSA A2C A-LLA Vol/BSA BP A-L 25.2 mL/m2 LA Vol A4C MOD53.9 mLLA Vol A2C MOD30.8 mLLA Vol BP MOD42.2 mL RA Volume RA Area A4C8.4 cm2RA ESV A4C (A-L)15.6mLRA Vol/BSA A4C A-L RA Length A4C3.8 cmRA ESV A4C (MOD)15.6mL LV Diastology MV E' medial0.077 (>0.07 m/s)MV E Vmax 0.80 (0.4-1.3 m/s) MV E/E' MED10.42 (<14)MV A Vmax 1.05 (0.4-1.3 m/s) MV E' lateral0.140 (>0.1 m/s)E/A Ratio 0.8 MV E/E' LAT5.73 (<14) MV E' Average0.108 m/s MV E/E'(average)7.39 Aortic Valve AoV Vmax1.29 m/sLVOT Vmax 1.07 m/s AoV Peak Grad37.6 mmHgLVOT Peak Grad 4.6 mmHg AoV Area (Vmax)2.42 rd1TWEQ VTI0.215 m AoV VTI0.291 mLVOT Mean Grad 2.6 mmHg AoV Mean Rian.0.86 m/sLVOT SV 62.92 mL AoV Mean Grad3.4 mmHgLVOT Diam s 1.90 cm AoV Area (VTI)2.16 cm2AV Regurg Peak Gr.6.64 mmHg Velocity Ratio 0.83 AR Decel Slope2.2m/sec2 AR DT 1845 msec AR PHT 535 msec AR Vmax 4.14 m/s Mitral Valve MV DT 244 (160-240 msec) Pulmonary Valve PV Vmax 0.83 (0.5-1.5 m/s)RVOT Vmax 0.58 m/s PV Peak Grad 2.8 mmHgRVOT Peak Gr.1.3 mmHg PV Mean Vel0.57 m/sRVOT VTI0.120 m PV Mean Grad 1.5 mmHgRVOT Mean Gr.0.8 mmHg Ordered By: Sabrina Harden CC: Dictated By: Lyssa Oropeza M.D. 01/03/25 1519 <Electronically signed by Lyssa Oropeza M.D. in OV> 01/03/25 1525 Transcribed By: Lyssa Oropeza MD 01/03/251518 This is privileged, confidential information intended only for the provider named. Any use or distribution by any person other than this provider is strictly prohibited. If you receive this report in error, please notify us immediately at [phone] and return the original report to us at the address above. Thank-you. Pulmonary Function Summary: Pulmonary Function Test PATIENT NAME: Diane Bourgeois UNIT #: [id number] ADMITTING PROVIDER: Elsie Cronin M.D. PRIMARY CARE PROVIDER: SABRINA HARDEN DATE OF ADMIT: 01/21/25 : 1960 Date of service: 01/21/25 Time of Service: 12:53 Pulmonary Function Test Result Indications: Dyspnea on exertion Interpretation Spirometry: No airflow limitation. No bronchodilator response. Lung Volumes: Normal lung volumes Diffusion Capacity: Normal diffusion Airway Pressure: Normal airways resistance Impression Normal pulmonary function testing Clinical Correlation therefore is recommended. cc: Dictated by: ELSIE CRONIN MD Dictated: 01/22/25 Time: 1534 <Electronically signed by Elsie Cronin M.D.> Date: 01/22/251537 Date: Date: Transcribed Date: 01/22/25 Transcribed Time: 1534 By: STEPHANE This is privileged, confidential information, intended only for the provider named. Any use or distribution by any person other than this provider is strictly prohibited. If you receive this report in error, please notify us immediately at [phone] and return the original report to us at the address above. Thank you. Anesthesia Assessment and Plan Anesthesia History Personal History: No History of Anesthesia Complications Family History: No Family History of Anesthesia Complications Exercise Tolerance Exercise Tolerance: Metabolic Equivalents>4 Pertinent Negatives Pertinent Negatives: No Symptoms of GERD, No Major Pulmonary Symptoms or Complaints and No History of CVA/TIA Cardiac & Pulmonary Exam Cardiac Exam: Normal S1/S2 Heart Sounds Pulmonary Exam: Active Dry Cough Implantable Cardiac Device Does patient have a Pacemaker or an ICD?: No Airway Exam Known Difficult Airway: No Mallampati Class: 2 Mouth Opening: Normal (> 3cm) Thyromental Distance: Greater than 3 cm Neck Range of Motion: Full ROM Neck Circumference: Normal Teeth Condition: Edentulous ASA Classification ASA Score: ASA 3 Emergency Case?: No NPO Status NPO Status: NPO Clears >2 hours, Solids >8 hours Anesthesia Plan Resuscitation Status: Full Code Anesthesia Technique: MAC Anesthesia Airway Planned: Natural Airway Monitors Used: Standard Monitors Preoperative Comments:: Reports a recent cardiac/?thyroid event. Reports high heart rates, bilateral edema L>R, went to her PCP for evaluation. Edema has resolved reports a change in meds, doubled her dose of metoprolol? Labs from 07/17 look reasonable, I consulted with Navjot Ware and we agreed that a local only today would be reasonable. Discussed with the patient and she's agreed. We will look into her recent episode and PCP visit.
[2025-07-26 09:03] VITALS: BMI 27.8
[2025-07-26] MEDS: Moxifloxacin-PF 1 MG/ML VIAL (09:04)
[2025-07-26] MEDS: Lidocaine 1% Pres-Free 5 ML VIAL (09:04)
[2025-07-26] MEDS: Phenylephrine/Lidocaine (15/10) MG/ML 1 ML VIAL (09:05)
[2025-07-26] MEDS: Duovisc Viscoelastic System EACH 1 EACH (09:06)
[2025-07-26] MEDS: Balanced Salt Soln.-PLUS 500 ML BAG OP (09:06)
[2025-07-26] MEDS: Povidone-Iodine Ophth 30 ML BTL (09:06)
[2025-07-26] MEDS: Tetracaine 0.5% 4 ML BTL OS (09:07)
[2025-07-26 09:26] VITALS: BP 127/42; PULSE 68; RESP 18; TEMP 36.2; O2SAT 97
--- NOTE | 2025-07-26 09:26 | W.PM.DSUDISC ---
Date of service: 07/26/25 Discharge Plan Disposition Patient Disposition: Home Discharge Details Attending Provider: Santosh Montiel Primary Care Provider: Sabrina Harden Home Meds and New Rx's Prescriptions: No Action eszopiclone 2 mg tablet 2 mg PO QHS oxybutynin chloride 5 mg tablet 5 mg PO BID duloxetine 60 mg capsule,delayed release(DR/EC) 60 mg PO DAILY duloxetine 30 mg capsule,delayed release(DR/EC) 30 mg PO DAILY cholecalciferol (vitamin D3) 1,250 mcg (50,000 unit) capsule 1,250 mcg PO QWEEK bupropion HCl 150 mg tablet extended release 24 hr 150 mg PO QAM methimazole 10 mg tablet 20 mg PO DAILY gabapentin 300 mg capsule 600 mg PO TID Rx Instructions: And 300mg at nighttime for sciatica/neuropathy propranolol 20 mg tablet 20 mg PO TID metoprolol tartrate 50 mg tablet 50 mg PO BID Patient Comments: TAKE ONE TABLET BY MOUTH TWICE A DAY FOR PALPITATIONS AND TACHYCARDIA meloxicam 7.5 mg tablet 7.5 mg PO DAILY Discharge Instructions Stand Alone Forms: DSU Post-Op CataractAlen (DSU) Discharge Orders Discharge Orders: Discharge Order (Routine); Ordered 07/26/25 Ordered By: Santosh Montiel DS: Diagnosis Discharge Diagnosis (1) Cortical age-related cataract, left eye: Status: Resolved (2) Nuclear age-related cataract, left eye: Status: Resolved
--- NOTE | 2025-07-26 09:27 | ROE_ITS ---
Operative Note Operative Note PRE-OP DIAGNOSIS: Nuclear/cortical cataract, left eye POST-OP DIAGNOSIS: same PROCEDURE: Cataract extraction using phacoemulsification with intraocular lens implant, left eye SURGEON: Santosh Montiel ANESTHESIA TYPE: Local By Surgeon and MAC Refer to Anesthesia Record PATHOLOGY: none sent COMPLICATIONS: None Patient was transported to: same day Patient's condition: stable Implants: Sami Clareon [id number] Indications: Progressive decreased vision due to cataract, left eye Procedure Description: CATARACT SURGERY OPERATIVE REPORT PREOPERATIVE DIAGNOSIS: Nuclear/cortical cataract, left eye POSTOPERATIVE DIAGNOSIS: Same OPERATION: Cataract extraction using phacoemulsification with posterior chamber intraocular lens implant, left eye. IOL: IOL Restaurant Maintenance Technician/Model: Sami Clareon [id number] IOL Power: + 25.0 diopters IOL Serial Number: [id number] Optic Diameter: 6.0mm Haptic/Overall Diameter: 13.0mm PHACO INFO: Sami Centurion Vision System with OZil and Active Fluidics Cumulative Dispersed Energy (CDE): 6.55 seconds SURGEON: Santosh Montiel MD, ELKE ANESTHESIA: Monitored Anesthesia Care (MAC), with local sub-tenon's anesthetic infiltration COMPLICATIONS: None SPECIMENS: None INDICATIONS FOR PROCEDURE: The patient is a 64-year-old lady with history of diminished visual acuity in her left eye secondary to the development of nuclear/cortical cataract. She is significantly symptomatic that she desires cataract surgery and attempt to improve and maximize her vision. The option of cataract surgery was offered to the patient and she wished to proceed. See office notes for detailed information. PROCEDURE: The correct surgical eye was identified and marked as the left eye and the pupil was dilated in the preoperative area using mydriatics and cycloplegics. The dilated pupil size was 6.0 mm. The patient elected to proceed without oral sedation. The patient was brought to the operating room where cardiopulmonary monitoring was instituted and surgical time-out was performed, confirming the correct operative eye and IOL power. Topical anesthesia was administered and ophthalmic povidone-iodine 5% was instilled into the conjunctival fornices. The artur-ocular area was prepped with Betadine 10% solution and draped in the usual sterile fashion for intraocular surgery, including an aperture drape. A Tegaderm transparent film dressing was cut in half and used to cover the lashes and lid margins. Care was taken to sequester the lashes and lid margins under the Tegaderm dressing. A lid speculum was placed between the lids of the operative eye and the Sami LuxOR Revalia operating microscope was maneuvered into position. Mao scissors were then used to make a conjunctival buttonhole approximately 6mm posterior to the limbus in the inferonasal quadrant. Blunt dissection was carried out to expose bare sclera, and a blunt-tipped sub-tenon?s anesthesia cannula was introduced and passed posteriorly along the globe where non- preserved plain lidocaine was injected into posterior sub-Tenon?s space. A sideport knife was used to make a paracentesis port. The anterior chamber was noted to be quite shallow, with increased depth of less than 1.8 mm. Intraocular phenylephrine/lidocaine was injected into the anterior chamber. The anterior chamber was then filled with viscoelastic. A keratome knife was used construct a two-plane clear corneal tunnel extending 2.0mm into clear cornea. A flap was raised on the anterior capsule and capsulorhexis forceps were used to complete a continuous curvilinear capsulorhexis of 4.8 mm. Balanced salt solution was then used to perform cortical cleaving hydrodissection and nuclear hydrodelineation until the lens could be freely rotated within the capsular bag. The lens nucleus was then disassembled and removed within the capsular bag and iris plane using phacoemulsification. Residual cortical material was removed using the irrigation/aspiration handpiece. The posterior capsule was carefully polished to remove as much residual lens epithelial cells as safely possible. The capsular bag was then inflated and the anterior chamber deepened with viscoelastic. The lens implant described above was inserted into the capsular bag using the Sami Autonome Injector. A Kuglen hook was used to dial the IOL into position. Residual viscoelastic was then removed first from posterior to the IOL, then from the anterior chamber using the I/A handpiece. The lens implant was noted to center nicely within the capsular bag. The incisions were stromally hydrated, and the anterior chamber was reformed using BSS. Then 0.5cc of moxifloxacin 1.0mg/ml were injected into the capsular bag and anterior chamber. The incisions were checked with a Weck spear and found to be secure. Several drops of ophthalmic povidone-iodine 5% were then applied to the eye followed by two drops of combination steroid/NSAID/antibiotic solution. The drapes were removed and a clear plastic protective eye shield was placed over the eye. The patient was then returned to Same Day Surgery in stable condition. Date of Procedure: 07/26/25
--- NOTE | 2025-07-26 09:48 | W.ANESPOSTOP ---
Postoperative Evaluation Date, Time and Location Date Performed: 07/26/25 Time Performed: : Patient Location: Day Surgery Unit Vital Signs Most Recent Imported Vital Signs: Most Recent Vital Signs Temp Pulse Resp BP Pulse Ox 36.2 C L 68 18 127/42 L 97 07/26/25 09:26 07/26/25 09:26 07/26/25 09:26 07/26/25 09:26 07/26/25 09:26 Pain Score Most Recent Pain Score: Most Recent Pain Score Pain Level 0 07/26/25 09:26 Assessment Mental Status: Awake (Alert & Oriented to Patient Baseline) Airway and Respiratory Function: Patent airway with normal (patient baseline) respiratory exam Cardiovascular Function: Hemodynamically Stable Hydration Status: Adequately Hydrated Nausea & Vomiting: No Nausea or Vomiting Pain: Pt. Denies Any Pain Peripheral Nerve Block: Other (Dinesh local still active and present)
== END 2025-07-26 09:46 | disposition home or self-care (01) ==
LOC: SUR 07:16
PROVIDERS: PCP Nurse Practitioner Family; Visit Provider Ophthalmology
PROC: (CPT 66984; principal; 2025-07-26 09:30)
DX: H25.012 Cortical age-related cataract, left eye (principal); H25.12 Age-related nuclear cataract, left eye
CPT/HCPCS: 66984; 00123; V2632; J2003

== ENCOUNTER 2025-08-09 06:46 | Day surgery (SDC) | payer MEDICAID, SELFPAY ==
[2025-08-09] MEDS: Tropicam./Phenyleph. (1/2.5%) 5 ML BTL OD ×3 (07:06→07:17)
[2025-08-09 07:08] VITALS: BP 131/62; PULSE 96; RESP 20; TEMP 36.3; O2SAT 93
--- NOTE | 2025-08-09 07:43 | W.ANESPRE ---
General Info Date of Service Date Performed: 08/09/25 Height: 5 ft 3.5 in Weight: 72.3 kg Body Mass Index (BMI): 27.8 Surgical Procedure: Operation Date: 08/09/25 08:40 Proposed Procedure Side Surgeon p Cataract Extraction with IOL Implant Right Santosh Montiel MD Meds Allergies and Home Medications Allergies Allergy/AdvReac Type Severity Reaction Status Date / Time paroxetine (From Paxil) Allergy Severe Anaphylaxis Verified 08/09/25 06:56 trazodone Allergy Severe Anaphylaxis Verified 08/09/25 06:56 Home Medication ?Medication ?Instructions ?Recorded duloxetine 60 mg capsule,delayed 60 mg PO DAILY 10/15/22 release eszopiclone 2 mg tablet 2 mg PO QHS 10/15/22 oxybutynin chloride 5 mg tablet 5 mg PO BID 10/15/22 bupropion HCl 150 mg 24 hr tablet, 150 mg PO QAM 03/31/23 extended release cholecalciferol (vitamin D3) 1,250 1,250 mcg PO QWEEK 03/31/23 mcg (50,000 unit) capsule duloxetine 30 mg capsule,delayed 30 mg PO DAILY 03/31/23 release gabapentin 300 mg capsule 600 mg PO TID 03/31/23 methimazole 10 mg tablet 20 mg PO DAILY 03/31/23 propranolol 20 mg tablet 20 mg PO TID 08/02/23 meloxicam 7.5 mg tablet 7.5 mg PO DAILY 07/24/25 metoprolol tartrate 50 mg tablet 50 mg PO BID 07/24/25 Current Visit Medications: Current Medications Generic Name Dose Route Start Last Admin Trade Name Freq PRN Reason Stop Dose Admin Acetaminophen 1,000 mg 08/09/25 06:00 Acetaminophen 500 Mg Tab PO 09/08/25 05:59 Q4H PRN PRN Balanced Salt Solution 500 ml 08/09/25 06:00 Balanced Salt Soln.-Plus 500 Ml Bag OP 09/08/25 05:59 DIRECTED RAMANA Miscellaneous Medication 0 ml 08/09/25 06:00 Prednisolone 1%, Moxifloxacin 0.5%, Bromfenac 0.09% 5.6ml Btl OD 09/08/25 05:59 DIRECTED RAMANA Miscellaneous Medication 0 ml 08/09/25 06:00 08/09/25 07:17 Tropicam./Phenyleph. (1/2.5%) 5 Ml Btl OD 09/08/25 05:59 1 drp DIRECTED RAMANA Administration Tetracaine HCl 0 ml 08/09/25 06:00 Tetracaine 0.5% 4 Ml Btl OD 09/08/25 05:59 DIRECTED RAMANA PFSH Active Problems Active Problems: Problem Status Onset Code Cortical age-related cataract, right eye Acute H25.011 Nuclear age-related cataract, right eye Acute H25.11 Cortical age-related cataract, left eye Resolved H25.012 Nuclear age-related cataract, left eye Resolved H25.12 Multinodular thyroid Acute E04.2 History of colon polyps Acute ~09/30/23 Z86.010 Family history of colon cancer in mother Acute Z80.0 Closed fracture of right proximal humerus Acute S42.201A Epidermal inclusion cyst Acute L72.0 Median nerve entrapment Acute G56.00 Insomnia Acute G47.00 Anxiety and depression Chronic F41.9, F32.A Hyperthyroidism Chronic E05.90 Enlarged thyroid Acute E04.9 Urge incontinence of urine Acute N39.41 Glaucoma, narrow-angle Acute H40.20X0 Cataracts, bilateral Acute H26.9 Subcutaneous mass of back Acute R22.2 Medical History Medical History Lupus (systemic lupus erythematosus) Thyrotoxicosis Carpal tunnel syndrome Mass of torso Simple goiter Cataract Mass of left breast Mixed anxiety and depressive disorder Ovarian cyst Rheumatoid arthritis Sciatica Urinary incontinence Subcutaneous mass of neck Other specified glaucoma Fatigue Abnormal TSH Pain in right upper arm Thyroid nodule Mass of left breast on mammogram IBS (irritable bowel syndrome) Rheumatoid arthritis involving both feet Tachycardia Sciatica, right side Nicotine dependence Surgical History Surgical History History of colonoscopy (~09/2023) biopsies taken Hx of tubal ligation History of hysterectomy History of appendectomy Tobacco Smoking/Tobacco Use Status: Current every day Tobacco Type: cigarettes Smoking cigarettes per day: 5 Passive smoking exposure: No Alcohol Alcohol Intake: never Substance Use Substance use: Socially Substance use type: marijuana Vital Signs and Lab Results Vital Signs Most Recent Vital Signs in EMR: Most Recent Vital Signs Temp Pulse Resp BP Pulse Ox 36.3 C L 96 H 20 131/62 93 08/09/25 07:08 08/09/25 07:08 08/09/25 07:08 08/09/25 07:08 08/09/25 07:08 Lab Results Complete Blood Count: WBC, (4.4-10.8) 4.22 10^3/uL L 07/17/25, 13:30 RBC, (3.93-5.22) 4.35 10^6/uL 07/17/25, 13:30 Hgb, (11.2-15.7) 13.1 g/dL 07/17/25, 13:30 Hct, (36.0-46.0) 40.3 % 07/17/25, 13:30 Plt Count, (130-400) 179 10^3/uL 07/17/25, 13:30 Complete Metabolic Panel: Sodium, (136-145) 138 mmol/L 07/17/25, 13:30 Potassium, (3.5-5.1) 4.3 mmol/L 07/17/25, 13:30 Chloride, (98-107) 103 mmol/L 07/17/25, 13:30 Carbon Dioxide, (21.0-32.0) 28.4 mmol/L 07/17/25, 13:30 BUN, (7-18) 14 mg/dL 07/17/25, 13:30 Creatinine, (0.55-1.02) 0.6 mg/dL 07/17/25, 13:30 Est GFR (CKD-EPI 2020), (mL/min/1.73m2) 100.17 07/17/25, 13:30 Calcium, (8.5-10.1) 9.9 mg/dL 07/17/25, 13:30 Glucose, (74-106) 118 mg/dL H 07/17/25, 13:30 Cardiac Panel: NT-Pro-B Natriuret Pep, (<300) 35 pg/mL 07/17/25 Imaging and Studies Imaging and Studies Study information below may be from another EMR and interpreted by another provider. Please see original notes in EMR for more complete details. Echocardiogram Summary: Patient Name: Diane Bourgeois Unit #: [id number] Loc: DI Ordering Provider: Sabrina Harden Status: REG CLI Primary Care Provider: Sabrina Harden Date of Exam: 01/03/25 Sex: F Admission Date: 01/03/25 : 1960 Age: 64 APPROVED REPORT EXAM: Comprehensive 2D, Doppler, and color-flow Echocardiogram Patient Location: Out-Patient [facility] Developer: Laci Marie RDCS (AE) Indications: Hyperthyroidism Other Information Study Quality: Adequate Conclusion Normal left ventricular wall thickness and chamber size. Ejection fraction is 60%. Wall motion is normal Normal right ventricular size and function Both atria are normal in size There are no structural valvular abnormalities Mild mitral and aortic regurgitation Wall motion Left Ventricle The left ventricle is normal size. Left ventricular systolic function is normal. The left ventricular ejection fraction is within the normal range. There is normal left ventricular wall thickness. There is normal LV segmental wall motion. There is no ventricular septal defect visualized. LVEF is 60%. Right Ventricle The right ventricle is normal size. The right ventricular systolic function is normal. Atria The left atrium size is normal. The right atrium size is normal. The interatrial septum is intact with no evidence for an atrial septal defect. Aortic Valve The aortic valve is normal in structure. Aortic valve is trileaflet. There is no aortic valvular stenosis. mild aortic regurgitation. Mitral Valve The mitral valve is normal in structure. No evidence of mitral valve stenosis. Mild mitral regurgitation. Tricuspid Valve The tricuspid valve is normal in structure. There is no tricuspid valve stenosis. There is no tricuspid valve regurgitation noted. Pulmonic Valve The pulmonary valve is normal in structure. There is no pulmonic valvular stenosis. There is no pulmonic valvular regurgitation. Great Vessels The aortic root is normal in size. The ascending aorta is normal in size. Aortic arch is normal in caliber. IVC is normal in size and collapses >50% with inspiration. Pericardium There is no pericardial effusion. 2D Dimensions IVSD d PLAX 0.69 cm F: 0.6-1.0Ao Root d 2.81 cm F: 2.7 - 3.3 LVPW d PLAX 0.65 cm F: 0.6 - 1.0 LVID d PLAX 4.31 cm F: 3.8 - 5.2 LVDs 2.94 cm F: 2.2 - 3.5 LV EF Teichholz 60.2 % FS31.87 % LV EDV (Teich)83.5 mL LV ESV (Teich)33.2 mL Stroke Vol Index (Teich)27.93 M-Mode TAPSE 1.58 cm (M/F) >1.7 Auto EF LV EDV V1Z914.3 mLLV EDV O9X897.8 mLLV EDV BP119.4 mL LV ESV A4C52.2 mLLV ESV A2C47.4 mLLV ESV BP49.4 mL LVEF(%) A4C59.6 %LVEF(%) A2C55.2 %LVEF(%) BP58.7 % LV SV A4C77.1 mlLV SV A2C58.4 mlLV SV BP70.0 ml LV CO A4C5.6 L/minLV CO A2C3.3 L/minLV CO BP4.4 L/min HR A4C72.44 BPMHR A2C56.59 BPMLV EDV Index (BP) LA Volume LA Length A4C5.0 cmLA Length A2C4.7 cm LA Area A4C s 18.54 cm2LA Area A2C s 13.45 cm2 LA Vol A4C A-L57.90 mLLA Vol A2C A-L32.85 mLLA Vol Biplane A-L45.3 mL LA Vol/BSA A4C A-LLA Vol/BSA A2C A-LLA Vol/BSA BP A-L 25.2 mL/m2 LA Vol A4C MOD53.9 mLLA Vol A2C MOD30.8 mLLA Vol BP MOD42.2 mL RA Volume RA Area A4C8.4 cm2RA ESV A4C (A-L)15.6mLRA Vol/BSA A4C A-L RA Length A4C3.8 cmRA ESV A4C (MOD)15.6mL LV Diastology MV E' medial0.077 (>0.07 m/s)MV E Vmax 0.80 (0.4-1.3 m/s) MV E/E' MED10.42 (<14)MV A Vmax 1.05 (0.4-1.3 m/s) MV E' lateral0.140 (>0.1 m/s)E/A Ratio 0.8 MV E/E' LAT5.73 (<14) MV E' Average0.108 m/s MV E/E'(average)7.39 Aortic Valve AoV Vmax1.29 m/sLVOT Vmax 1.07 m/s AoV Peak Grad37.6 mmHgLVOT Peak Grad 4.6 mmHg AoV Area (Vmax)2.42 gv3WMRX VTI0.215 m AoV VTI0.291 mLVOT Mean Grad 2.6 mmHg AoV Mean Rian.0.86 m/sLVOT SV 62.92 mL AoV Mean Grad3.4 mmHgLVOT Diam s 1.90 cm AoV Area (VTI)2.16 cm2AV Regurg Peak Gr.6.64 mmHg Velocity Ratio 0.83 AR Decel Slope2.2m/sec2 AR DT 1845 msec AR PHT 535 msec AR Vmax 4.14 m/s Mitral Valve MV DT 244 (160-240 msec) Pulmonary Valve PV Vmax 0.83 (0.5-1.5 m/s)RVOT Vmax 0.58 m/s PV Peak Grad 2.8 mmHgRVOT Peak Gr.1.3 mmHg PV Mean Vel0.57 m/sRVOT VTI0.120 m PV Mean Grad 1.5 mmHgRVOT Mean Gr.0.8 mmHg Ordered By: Sabrina Harden CC: Dictated By: Lyssa Oropeza M.D. 01/03/25 1519 <Electronically signed by Lyssa Oropeza M.D. in [place]> 01/03/25 1525 Transcribed By: Lyssa Oroepza MD 01/03/25 1519 This is privileged, confidential information intended only for the provider named. Any use or distribution by any person other than this provider is strictly prohibited. If you receive this report in error, please notify us immediately at [phone] and return the original report to us at the address above. Thank-you. Pulmonary Function Summary: Pulmonary Function Test PATIENT NAME: Diane Bourgeois UNIT #: [id number] ADMITTING PROVIDER: Elsie Cronin M.D. PRIMARY CARE PROVIDER: SABRINA HARDEN DATE OF ADMIT: 01/21/25 : 1960 Date of service: 01/21/25 Time of Service: 12:53 Pulmonary Function Test Result Indications: Dyspnea on exertion Interpretation Spirometry: No airflow limitation. No bronchodilator response. Lung Volumes: Normal lung volumes Diffusion Capacity: Normal diffusion Airway Pressure: Normal airways resistance Impression Normal pulmonary function testing Clinical Correlation therefore is recommended. cc: Dictated by: ELSIE CRONIN MD Dictated: 01/22/25 Time: 1534 <Electronically signed by Elsie Cronin M.D.> Date: 01/22/251537 Date: Date: Transcribed Date: 01/22/25 Transcribed Time: 1534 By: STEPHANE This is privileged, confidential information, intended only for the provider named. Any use or distribution by any person other than this provider is strictly prohibited. If you receive this report in error, please notify us immediately at [phone] and return the original report to us at the address above. Thank you. Anesthesia Assessment and Plan Anesthesia History Personal History: No History of Anesthesia Complications Family History: No Family History of Anesthesia Complications Exercise Tolerance Exercise Tolerance: Metabolic Equivalents>4 Pertinent Negatives Pertinent Negatives: No Symptoms of GERD, No Major Pulmonary Symptoms or Complaints and No History of CVA/TIA Cardiac & Pulmonary Exam Cardiac Exam: Normal S1/S2 Heart Sounds Pulmonary Exam: Wheezing Present (Chronic) Implantable Cardiac Device Does patient have a Pacemaker or an ICD?: No Airway Exam Known Difficult Airway: No Mallampati Class: 2 Mouth Opening: Normal (> 3cm) Thyromental Distance: Greater than 3 cm Neck Range of Motion: Full ROM Neck Circumference: Normal Teeth Condition: Edentulous ASA Classification ASA Score: ASA 3 Emergency Case?: No NPO Status NPO Status: NPO Clears >2 hours, Solids >8 hours Anesthesia Plan Resuscitation Status: Full Code Anesthesia Technique: MAC Anesthesia Airway Planned: Natural Airway Monitors Used: Standard Monitors Preoperative Comments:: Patient reports increase in metoprolol dose has stabilized her elevated HR. Requests MKO today.
[2025-08-09 08:11] VITALS: BMI 27.8
[2025-08-09] MEDS: Tetracaine 0.5% 4 ML BTL OD (08:25)
[2025-08-09] MEDS: Duovisc Viscoelastic System EACH 1 EACH (08:33)
[2025-08-09] MEDS: Balanced Salt Soln.-PLUS 500 ML BAG OP (08:33)
[2025-08-09] MEDS: Phenylephrine/Lidocaine (15/10) MG/ML 1 ML VIAL (08:34)
[2025-08-09] MEDS: Lidocaine 1% Pres-Free 5 ML VIAL (08:34)
[2025-08-09] MEDS: Moxifloxacin-PF 1 MG/ML VIAL (08:37)
[2025-08-09] MEDS: Povidone-Iodine Ophth 30 ML BTL (08:38)
[2025-08-09] MEDS: Prednisolone 1%, Moxifloxacin 0.5%, Bromfenac 0.09% 5.6ML BTL OD (08:56)
[2025-08-09 09:02] VITALS: BP 110/64; PULSE 73; RESP 16; TEMP 36.1; O2SAT 95
--- NOTE | 2025-08-09 09:03 | W.PM.DSUDISC ---
Date of service: 08/09/25 Discharge Plan Disposition Patient Disposition: Home Discharge Details Attending Provider: Santosh Montiel Primary Care Provider: Ruth Veronica Home Meds and New Rx's Prescriptions: No Action eszopiclone 2 mg tablet 2 mg PO QHS oxybutynin chloride 5 mg tablet 5 mg PO BID duloxetine 60 mg capsule,delayed release(DR/EC) 60 mg PO DAILY duloxetine 30 mg capsule,delayed release(DR/EC) 30 mg PO DAILY cholecalciferol (vitamin D3) 1,250 mcg (50,000 unit) capsule 1,250 mcg PO QWEEK bupropion HCl 150 mg tablet extended release 24 hr 150 mg PO QAM methimazole 10 mg tablet 20 mg PO DAILY gabapentin 300 mg capsule 600 mg PO TID Rx Instructions: And 300mg at nighttime for sciatica/neuropathy propranolol 20 mg tablet 20 mg PO TID metoprolol tartrate 50 mg tablet 50 mg PO BID Patient Comments: TAKE ONE TABLET BY MOUTH TWICE A DAY FOR PALPITATIONS AND TACHYCARDIA meloxicam 7.5 mg tablet 7.5 mg PO DAILY Discharge Instructions Stand Alone Forms: DSU Post-Op CataractAlen (DSU) Discharge Orders Discharge Orders: Discharge Order (Routine); Ordered 08/09/25 Ordered By: Santosh Montiel DS: Diagnosis Discharge Diagnosis (1) Cortical age-related cataract, right eye: Status: Resolved (2) Nuclear age-related cataract, right eye: Status: Resolved
--- NOTE | 2025-08-09 09:04 | W.PM.OP ---
Operative Note Operative Note PRE-OP DIAGNOSIS: Nuclear/cortical cataract, right eye POST-OP DIAGNOSIS: same PROCEDURE: Cataract extraction using phacoemulsification with intraocular lens implant, right eye SURGEON: Santosh Montiel ANESTHESIA TYPE: Local By Surgeon and MAC Refer to Anesthesia Record ESTIMATED BLOOD LOSS: 0 PATHOLOGY: none sent COMPLICATIONS: None Patient was transported to: same day Patient's condition: stable Implants: Sami Clareon [id number] Indications: Progressive decreased vision due to cataract, right eye Procedure Description: CATARACT SURGERY OPERATIVE REPORT PREOPERATIVE DIAGNOSIS: Nuclear/cortical cataract, right eye POSTOPERATIVE DIAGNOSIS: Same OPERATION: Cataract extraction using phacoemulsification with posterior chamber intraocular lens implant, right eye. IOL: IOL Glassware Maker Demonstrator/Model: Sami Clareon [id number] IOL Power: + 24.5 diopters IOL Serial Number: [id number] Optic Diameter: 6.0mm Haptic/Overall Diameter: 13.0mm PHACO INFO: Sami Centurion Vision System with OZil and Active Fluidics Cumulative Dispersed Energy (CDE): 10.91 seconds SURGEON: Santosh Montiel MD, ELKE ANESTHESIA: Monitored Anesthesia Care (MAC), with local sub-tenon's anesthetic infiltration COMPLICATIONS: None SPECIMENS: None INDICATIONS FOR PROCEDURE: The patient is a 64-year-old lady with history of hyperopia who has developed significant bilateral nuclear/cortical cataract. She is significantly symptomatic that she desires cataract surgery in attempt to improve and maximize her vision. She has previously undergone cataract surgery in the left eye and is doing well postoperatively. She now presents for cataract surgery in the right eye. See office notes for detailed information. PROCEDURE: The correct surgical eye was identified and marked as the right eye and the pupil was dilated in the preoperative area using mydriatics and cycloplegics. The dilated pupil size was 6.0 mm. Oral sedation was administered in the form of an Imprimis MKO Melt (midazolam 3mg/ketamine 25mg/ondansetron 2mg). The patient was brought to the operating room where cardiopulmonary monitoring was instituted and surgical time-out was performed, confirming the correct operative eye and IOL power. Topical anesthesia was administered and ophthalmic povidone-iodine 5% was instilled into the conjunctival fornices. The artur-ocular area was prepped with Betadine 10% solution and draped in the usual sterile fashion for intraocular surgery, including an aperture drape. A Tegaderm transparent film dressing was cut in half and used to cover the lashes and lid margins. Care was taken to sequester the lashes and lid margins under the Tegaderm dressing. A lid speculum was placed between the lids of the operative eye and the Sami LuxOR Revalia operating microscope was maneuvered into position. Mao scissors were then used to make a conjunctival buttonhole approximately 6mm posterior to the limbus in the inferonasal quadrant. Blunt dissection was carried out to expose bare sclera, and a blunt-tipped sub-tenon?s anesthesia cannula was introduced and passed posteriorly along the globe where non-preserved plain lidocaine was injected into posterior sub-Tenon?s space. A sideport knife was used to make a paracentesis port. Intraocular phenylephrine/lidocaine was injected into the anterior chamber. The anterior chamber was then filled with viscoelastic. The anterior chamber was noted to be quite shallow. A keratome knife was used to construct a two--plane clear corneal tunnel extending 2.0mm into clear cornea. A flap was raised on the anterior capsule and capsulorhexis forceps were used to complete a continuous curvilinear capsulorhexis of 5.0 mm. Balanced salt solution was then used to perform cortical cleaving hydrodissection and nuclear hydrodelineation until the lens could be freely rotated within the capsular bag. The lens nucleus was then disassembled and removed within the capsular bag and iris plane using phacoemulsification. Residual cortical material was removed using the I/A handpiece. The posterior capsule was carefully polished to remove as much residual lens epithelial cells as safely possible. The capsular bag was then inflated and the anterior chamber deepened with cohesive viscoelastic. The lens implant described above was inserted into the capsular bag using the Sami Autonome Injector. A Kuglen hook was used to dial the IOL into position. Residual viscoelastic was then removed first from posterior to the IOL, then from the anterior chamber using the I/A handpiece. The lens implant was noted to center nicely within the capsular bag. The incisions were stromally hydrated, and the anterior chamber was reformed using BSS. Then 0.5cc of moxifloxacin 1.0mg/ml were injected into the capsular bag and anterior chamber. The incisions were checked with a Weck spear and found to be secure. Several drops of ophthalmic povidone-iodine 5% were then applied to the eye followed by two drops of combination steroid/NSAID/antibiotic solution. The drapes were removed and a clear plastic protective eye shield was placed over the eye. The patient was then returned to Same Day Surgery in stable condition. Date of Procedure: 08/09/25
[2025-08-09 09:29] VITALS: BP 129/70; PULSE 72; RESP 16; TEMP 36.5; O2SAT 94
--- NOTE | 2025-08-09 09:29 | W.ANESPOSTOP ---
Postoperative Evaluation Date, Time and Location Date Performed: 08/09/25 Time Performed: 09:02 Patient Location: Day Surgery Unit Vital Signs Most Recent Imported Vital Signs: Most Recent Vital Signs Temp Pulse Resp BP Pulse Ox 36.1 C L 73 16 110/64 95 08/09/25 09:02 08/09/25 09:02 08/09/25 09:02 08/09/25 09:02 08/09/25 09:02 Pain Score Most Recent Pain Score: Most Recent Pain Score Pain Level 0 08/09/25 09:02 Assessment Mental Status: Awake (Alert & Oriented to Patient Baseline) Airway and Respiratory Function: Patent airway with normal (patient baseline) respiratory exam Cardiovascular Function: Hemodynamically Stable Hydration Status: Adequately Hydrated Nausea & Vomiting: No Nausea or Vomiting Pain: Pt. Denies Any Pain Peripheral Nerve Block: Patient did not receive a nerve block
== END 2025-08-09 09:32 | disposition home or self-care (01) ==
LOC: SUR 06:47
PROVIDERS: Visit Provider Ophthalmology
PROC: (CPT 66984; principal; 2025-08-09 08:30)
DX: H25.011 Cortical age-related cataract, right eye (principal); H25.11 Age-related nuclear cataract, right eye; Z98.42 Cataract extraction status, left eye
CPT/HCPCS: 66984; 00123; V2632; J2003